=== PATIENT | female | born 1930 | race Caucasian/White ===

== ENCOUNTER 2019-03-12 13:27 | Emergency (ER) | payer MEDICARE, MEDICAID ==
[~2019-03-12] VITALS: Ht 152.4 cm; Wt 64.5 kg
[~2019-03-12 13:27] MED LIST: ALBU8.5H8 INH; ASPI-1264 PO; ATOR20TA PO; ATRIN INH; CLOP75TA15 PO; FERR324T4 PO; FURO-150 PO; GABA-532 PO; LEVO100T PO; LISI10TA4 PO; NITR0.4T SL; ONDA4TAB12 PO; PANT40TA4 PO; POTA8CAP20 PO
[2019-03-12] MEDS ORDERED: normal saline 1000ML IV soln IV ONE (14:55)
[2019-03-12] MEDS ORDERED: ondansetron/PF 4mg/2ml inj IV ONE (14:55)
[2019-03-12] MEDS ORDERED: metoprolol tartrate 1mg/ml inj IV ONE (15:10)
[2019-03-12 15:25] LABS: BASOPHILS # (AUTO) 0.1 X10'3 (0-0.2); BASOPHILS % (AUTO) 1.3 % (0-1); EOSINOPHILS # (AUTO) 0.1 X10'3 (0-0.9); EOSINOPHILS % (AUTO) 0.8 % (0-6); HEMOGLOBIN 12.3 g/dl (12.0-16.0); LYMPHOCYTES % (AUTO) 9.8 % (21-51); MEAN CORPUSCULAR HEMOGLOBIN 28.8 PG (27.0-31.0); MEAN CORPUSCULAR HGB CONC 33.3 g/dL (33.0-36.5); MEAN CORPUSCULAR VOLUME 86.5 FL (78-98); MEAN PLATELET VOLUME 7.8 FL (7.4-10.4); MONOCYTES # (AUTO) 0.9 X10'3 (0-0.9); MONOCYTES % (AUTO) 8.8 % (2-12); NEUTROPHILS # (AUTO) 8.4 X10'3 (1.8-7.7); NEUTROPHILS % (AUTO) 79.3 % (42-75); PLATELET COUNT 215 X10'3 (140-440); RED BLOOD COUNT 4.27 X10'6 (4.20-5.60); RED CELL DISTRIBUTION WIDTH 15.4 % (11.5-14.5); WHITE BLOOD COUNT 10.6 X10'3 (4.5-11.0)
[2019-03-12 15:37] LABS: ALANINE AMINOTRANSFERASE 16 U/L (12-78); ALBUMIN 3.7 G/DL (3.4-5.0); ALBUMIN/GLOBULIN RATIO 0.9 (1.1-1.5); ALKALINE PHOSPHATASE 79 IU/L (46-116); ANION GAP 11 (8-16); ASPARTATE AMINO TRANSFERASE 15 U/L (10-37); BLOOD UREA NITROGEN 27 MG/DL (7-18); BUN/CREATININE RATIO 20.1 (6.6-38.0); CALCIUM 9.8 MG/DL (8.5-10.1); CHLORIDE 101 MMOL/L (99-107); CREATININE 1.34 MG/DL (0.40-0.90); GLUCOSE 116 MG/DL (70-104); POTASSIUM 4.2 MMOL/L (3.5-5.1); SODIUM 137 MMOL/L (135-145); TOTAL CARBON DIOXIDE 24.6 MMOL/L (24-32); TOTAL PROTEIN 7.7 G/DL (6.4-8.2); eGFR 37 ML/MIN
[2019-03-12 16:39] LABS: CLARITY,URINE CLEAR (Clear); COLOR,URINE STRAW (Yellow); GLUCOSE, URINE NEGATIVE (Neg); KETONES,URINE NEGATIVE (Neg); LEUKOCYTE ESTERASE ,URINE NEGATIVE (Neg); NITRITES, URINE NEGATIVE (Neg); OCCULT BLOOD,URINE SMALL (Neg); PH,URINE 8.5 (4.8-8.0); PROTEIN,URINE 100 mg/dl (Neg); UROBILINOGEN,URINE 0.2 E.U/dL (0.2-1.0)
[2019-03-12 16:49] LABS: UA COLLECTION TYPE CLN CATCH MIDSTREAM
[2019-03-12 16:50] LABS: MUCUS STRANDS NONE SEEN /LPF (Neg); SQUAMOUS EPITHELIAL CELL,UR FEW /LPF (FEW); TRANSITIONAL EPI CELLS,URINE FEW /HPF
[2019-03-12 16:51] LABS: BACTERIA,URINE FEW /HPF (Neg); RBC,URINE 20-50 /HPF (0-2)
[2019-03-12 16:52] LABS: WBC,URINE 0-4 /HPF (0-4)
[2019-03-12] MEDS ORDERED: ONDA4TAB6 PO (17:03)
[2019-03-12 17:20] VITALS: BP 174/81
== END 2019-03-12 17:15 | disposition home or self-care (01) ==
LOC: ER 13:28
DX: A08.4 Viral intestinal infection, unspecified (principal); E86.0 Dehydration; I11.0 Hypertensive heart disease with heart failure; I50.9 Heart failure, unspecified; E78.00 Pure hypercholesterolemia, unspecified; J44.9 Chronic obstructive pulmonary disease, unspecified; K21.9 Gastro-esophageal reflux disease without esophagitis; G89.29 Other chronic pain; Z88.2 Allergy status to sulfonamides; Z79.82 Long term (current) use of aspirin; Z79.899 Other long term (current) drug therapy; Z86.73 Personal history of transient ischemic attack (TIA), and cerebral infarction without residual deficits; Z90.710 Acquired absence of both cervix and uterus; Z98.890 Other specified postprocedural states; Z95.0 Presence of cardiac pacemaker
CPT/HCPCS: 36415; 71045; 80053; 81001; 82948; 83605; 84145; 85025; 85610; 87040; 93005; 96361; 96374; 96375; 99284; J2405; J7030; J3490

== ENCOUNTER 2019-04-16 19:16 | Inpatient (IN) | payer MEDICAID, MEDICARE, OTHER ==
[~2019-04-16] VITALS: Ht 152.4 cm; Wt 64.0 kg
[~2019-04-16 19:16] MED LIST changes: +ONDA4TAB6 PO
[2019-04-16 20:13] LABS: CLARITY,URINE CLEAR (Clear); COLOR,URINE YELLOW (Yellow); GLUCOSE, URINE NEGATIVE (Neg); KETONES,URINE NEGATIVE (Neg); LEUKOCYTE ESTERASE ,URINE NEGATIVE (Neg); NITRITES, URINE NEGATIVE (Neg); OCCULT BLOOD,URINE MODERATE (Neg); PROTEIN,URINE 100 mg/dl (Neg); UA COLLECTION TYPE STRAIGHT CATH; UROBILINOGEN,URINE 0.2 E.U/dL (0.2-1.0)
[2019-04-16 20:20] LABS: BASOPHILS # (AUTO) 0.1 X10'3 (0-0.2); BASOPHILS % (AUTO) 0.9 % (0-1); EOSINOPHILS # (AUTO) 0.1 X10'3 (0-0.9); EOSINOPHILS % (AUTO) 0.7 % (0-6); HEMOGLOBIN 12.4 g/dl (12.0-16.0); LYMPHOCYTES # (AUTO) 0.7 X10'3 (1.1-4.8); LYMPHOCYTES % (AUTO) 7.1 % (21-51); MEAN CORPUSCULAR HEMOGLOBIN 28.4 PG (27.0-31.0); MEAN CORPUSCULAR HGB CONC 32.8 g/dL (33.0-36.5); MEAN CORPUSCULAR VOLUME 86.7 FL (78-98); MEAN PLATELET VOLUME 8.1 FL (7.4-10.4); MONOCYTES # (AUTO) 0.8 X10'3 (0-0.9); MONOCYTES % (AUTO) 8.3 % (2-12); NEUTROPHILS # (AUTO) 7.9 X10'3 (1.8-7.7); PLATELET COUNT 211 X10'3 (140-440); RED BLOOD COUNT 4.38 X10'6 (4.20-5.60); RED CELL DISTRIBUTION WIDTH 15.2 % (11.5-14.5); WHITE BLOOD COUNT 9.5 X10'3 (4.5-11.0)
[2019-04-16 20:28] LABS: BACTERIA,URINE NONE SEEN /HPF (Neg); MUCUS STRANDS NONE SEEN /LPF (Neg); SQUAMOUS EPITHELIAL CELL,UR FEW /LPF (FEW); WBC,URINE NONE SEEN /HPF (0-4)
[2019-04-16 20:35] LABS: PARTIAL THROMBOPLASTIN TIME 40 SECONDS (22-32)
[2019-04-16 20:37] LABS: ALANINE AMINOTRANSFERASE 20 U/L (12-78); ALBUMIN 3.4 G/DL (3.4-5.0); ALBUMIN/GLOBULIN RATIO 0.9 (1.1-1.5); ALKALINE PHOSPHATASE 91 IU/L (46-116); ANION GAP 13 (8-16); ASPARTATE AMINO TRANSFERASE 20 U/L (10-37); BILIRUBIN,TOTAL 0.4 MG/DL (0.1-1.0); BLOOD UREA NITROGEN 23 MG/DL (7-18); BUN/CREATININE RATIO 19.8 (6.6-38.0); CHLORIDE 105 MMOL/L (99-107); CREATININE 1.16 MG/DL (0.40-0.90); GLUCOSE 58 MG/DL (70-104); POTASSIUM 3.1 MMOL/L (3.5-5.1); SODIUM 141 MMOL/L (135-145); TOTAL CARBON DIOXIDE 23.2 MMOL/L (24-32); TOTAL PROTEIN 7.4 G/DL (6.4-8.2); eGFR 44 ML/MIN
[2019-04-16] MEDS ORDERED: ASPI-611 PO (21:19)
[2019-04-16] MEDS ORDERED: ATOR40TA PO (21:19)
[2019-04-16] MEDS ORDERED: METO-395 PO (21:19)
[2019-04-16] MEDS ORDERED: FURO40TA4 PO (21:19)
[2019-04-16] MEDS ORDERED: LISI-600 PO (21:19)
[2019-04-16] MEDS ORDERED: GABA-532 PO ×2 (21:19→23:52)
[2019-04-16] MEDS ORDERED: acetaminophen 325mg tablet PO PRN (23:05)
[2019-04-16] MEDS ORDERED: magnesium hydroxide 30ml (MOM) UD suspension PO PRN (23:05)
[2019-04-16] MEDS ORDERED: albuterol 2.5 MG/3 ML nebule NEB PRN (23:30)
[2019-04-16] MEDS ORDERED: potassium Cl 20 mEq SR tablet PO PRN (23:55)
[2019-04-16] MEDS ORDERED: potassium CL 10mEq/100ml bag 100 ML IV PRN (23:55)
--- NOTE | 2019-04-16 23:56 | NUR ---
Rec'd report from STAN Farley from the ER. Patient going to Rm#[id number].
[2019-04-17] VITALS (7 sets, daily range): BP systolic 120–195; BP diastolic 60–80
[2019-04-17] MEDS: ipratropium 0.5 MG/2.5ML nebule IH SCH ×5 (00:13→21:15)
[2019-04-17 01:54] LABS: BASOPHILS # (AUTO) 0.1 X10'3 (0-0.2); BASOPHILS % (AUTO) 1.3 % (0-1); EOSINOPHILS # (AUTO) 0.1 X10'3 (0-0.9); EOSINOPHILS % (AUTO) 0.7 % (0-6); HEMATOCRIT 38.2 % (35.0-45.0); HEMOGLOBIN 12.8 g/dl (12.0-16.0); LYMPHOCYTES # (AUTO) 0.8 X10'3 (1.1-4.8); LYMPHOCYTES % (AUTO) 9.6 % (21-51); MEAN CORPUSCULAR HEMOGLOBIN 28.7 PG (27.0-31.0); MEAN CORPUSCULAR HGB CONC 33.6 g/dL (33.0-36.5); MEAN CORPUSCULAR VOLUME 85.3 FL (78-98); MONOCYTES # (AUTO) 0.7 X10'3 (0-0.9); MONOCYTES % (AUTO) 8.2 % (2-12); NEUTROPHILS # (AUTO) 6.8 X10'3 (1.8-7.7); NEUTROPHILS % (AUTO) 80.2 % (42-75); PLATELET COUNT 191 X10'3 (140-440); RED BLOOD COUNT 4.48 X10'6 (4.20-5.60); RED CELL DISTRIBUTION WIDTH 14.8 % (11.5-14.5); WHITE BLOOD COUNT 8.4 X10'3 (4.5-11.0)
[2019-04-17] MEDS ORDERED: ondansetron 4mg rapidly disintigrating tab PO PRN (02:00)
[2019-04-17 02:04] LABS: ALANINE AMINOTRANSFERASE 21 U/L (12-78); ALBUMIN 3.3 G/DL (3.4-5.0); ALBUMIN/GLOBULIN RATIO 0.8 (1.1-1.5); ALKALINE PHOSPHATASE 87 IU/L (46-116); ANION GAP 8 (8-16); ASPARTATE AMINO TRANSFERASE 14 U/L (10-37); BILIRUBIN,TOTAL 0.4 MG/DL (0.1-1.0); BLOOD UREA NITROGEN 20 MG/DL (7-18); BUN/CREATININE RATIO 19.2 (6.6-38.0); CALCIUM 8.9 MG/DL (8.5-10.1); CHLORIDE 106 MMOL/L (99-107); CREATININE 1.04 MG/DL (0.40-0.90); GLUCOSE 51 MG/DL (70-104); POTASSIUM 3.6 MMOL/L (3.5-5.1); SODIUM 141 MMOL/L (135-145); TOTAL CARBON DIOXIDE 26.7 MMOL/L (24-32); TOTAL PROTEIN 7.2 G/DL (6.4-8.2); eGFR 50 ML/MIN
[2019-04-17] MEDS ORDERED: dextrose 50%-water 50ml dispensing syringe IV ONE ×2 (06:20→06:27)
--- NOTE | 2019-04-17 06:37 | NUR ---
Informed Dr. Landeros that the patient had a BG of 48, I pushed Dextrose and will recheck in 15min.
--- NOTE | 2019-04-17 06:54 | NUR ---
Patient in room PCU 3022. I have received report from STAN Bee and had the opportunity to ask questions and assume patient care. Pt is awake. Cristal corrected the pt's low blood sugar. She is alert and oriented, and sitting comfortably in bed.
[2019-04-17] MEDS: heparin, porcine 5000 units/ml vial SQ SCH ×3 (08:00→20:25)
[2019-04-17] MEDS: metoprolol succinate 25mg (24-HOUR) SR. Tablet PO SCH (08:39)
[2019-04-17] MEDS: clopidogrel 75mg tablet PO SCH (08:41)
[2019-04-17] MEDS: aspirin 81mg tab.chew PO SCH (08:41)
[2019-04-17] MEDS: ferrous sulfate 325mg tablet PO SCH ×2 (08:41→20:24)
[2019-04-17] MEDS: furosemide 40mg tablet PO SCH (08:41)
[2019-04-17] MEDS: potassium chloride 8mEq ER tablet PO SCH (08:41)
[2019-04-17] MEDS: levoTHYROXINE 100mcg tablet PO SCH (08:41)
[2019-04-17] MEDS: lisinopril 5mg tablet PO SCH ×2 (08:41→20:24)
--- NOTE | 2019-04-17 12:27 | NUR ---
Sent to Dr Huang PAGER ID: [phone] MESSAGE: RE: Rocio Perez [phone]. Would you mind calling me to fill me in on a plan? Pt is unsure why she is here if her problem was solely decreased BG, aside from pre-existing conditions. -Rhonda [phone]
[2019-04-17] MEDS: dextrose 5%-water 1,000 ML IV SCH (14:01)
--- NOTE | 2019-04-17 14:45 | NUR ---
Malnutrition consult: Patient's current wt is stable with documented wt hx. Per H&P pt has retained hunger which is evident with documented 100% PO intake on heart healthy diet meeting nutrient needs. Pt with general mild weakness and no edema. Pt currently does not meet criteria for malnutrition. Will continue to follow. Addendum: 04/17/19 at [address] Amended: Links added.
--- NOTE | 2019-04-17 18:53 | NUR ---
Problems reprioritized. Patient report given, questions answered & plan of care reviewed with STAN Bee.
[2019-04-17] MEDS: ondansetron/PF 4mg/2ml inj IV PRN (21:43)
--- NOTE | 2019-04-18 01:00 | NUR ---
Patient started complaining of Chest Pain 10/10 left breast, down left arm and jaw. 12 lead EKG done and Troponin sent off. Dr. Landeros notified and reviewed the EKG, advised me to give morphine 2mg now.
[2019-04-18] MEDS ORDERED: morphine 4 MG/ML inj SYRINge IV ONE (01:25)
[2019-04-18 01:34] LABS: ALANINE AMINOTRANSFERASE 21 U/L (12-78); ALBUMIN 3.3 G/DL (3.4-5.0); ALBUMIN/GLOBULIN RATIO 0.9 (1.1-1.5); ALKALINE PHOSPHATASE 82 IU/L (46-116); ANION GAP 13 (8-16); ASPARTATE AMINO TRANSFERASE 15 U/L (10-37); BILIRUBIN,TOTAL 0.6 MG/DL (0.1-1.0); BLOOD UREA NITROGEN 21 MG/DL (7-18); BUN/CREATININE RATIO 18.9 (6.6-38.0); CALCIUM 9.1 MG/DL (8.5-10.1); CHLORIDE 104 MMOL/L (99-107); CREATININE 1.11 MG/DL (0.40-0.90); GLUCOSE 119 MG/DL (70-104); POTASSIUM 4.4 MMOL/L (3.5-5.1); SODIUM 135 MMOL/L (135-145); TOTAL CARBON DIOXIDE 18.4 MMOL/L (24-32); TOTAL PROTEIN 7.1 G/DL (6.4-8.2); eGFR 46 ML/MIN
[2019-04-18 01:37] LABS: BASOPHILS # (AUTO) 0.3 X10'3 (0-0.2); BASOPHILS % (AUTO) 2.8 % (0-1); EOSINOPHILS # (AUTO) 0.3 X10'3 (0-0.9); EOSINOPHILS % (AUTO) 2.6 % (0-6); HEMOGLOBIN 12.8 g/dl (12.0-16.0); LYMPHOCYTES # (AUTO) 1.4 X10'3 (1.1-4.8); LYMPHOCYTES % (AUTO) 13.7 % (21-51); MAGNESIUM 1.9 MG/DL (1.5-2.4); MEAN CORPUSCULAR HEMOGLOBIN 28.7 PG (27.0-31.0); MEAN CORPUSCULAR HGB CONC 33.6 g/dL (33.0-36.5); MEAN CORPUSCULAR VOLUME 85.4 FL (78-98); MEAN PLATELET VOLUME 8.5 FL (7.4-10.4); MONOCYTES % (AUTO) 9.7 % (2-12); NEUTROPHILS # (AUTO) 7.1 X10'3 (1.8-7.7); NEUTROPHILS % (AUTO) 71.2 % (42-75); PLATELET COUNT 252 X10'3 (140-440); RED BLOOD COUNT 4.44 X10'6 (4.20-5.60); TROPONIN I < 0.04 NG/ML (0.0-0.05); WHITE BLOOD COUNT 9.9 X10'3 (4.5-11.0)
--- NOTE | 2019-04-18 01:50 | NUR ---
Troponin is negative 0.04, patient is resting comfortably after getting Morphine 2mg. I will continue to monitor.
--- NOTE | 2019-04-18 03:25 | NUR ---
Patient is up to bedside commode, she told unit tech she has no pain and is feeling better.
[2019-04-18 06:00] VITALS: BP 152/73
--- NOTE | 2019-04-18 06:13 | NUR ---
Problems reprioritized. Patient report given, questions answered & plan of care reviewed with STAN Ellis.
--- NOTE | 2019-04-18 06:20 | NUR ---
Patient in room PCU 3022. I have received report from STAN Bee and had the opportunity to ask questions and assume patient care. Pt sleeping. Will continue to monitor.
[2019-04-18] MEDS: ipratropium 0.5 MG/2.5ML nebule IH SCH ×4 (07:06→20:08)
[2019-04-18] MEDS: heparin, porcine 5000 units/ml vial SQ SCH ×2 (08:00→19:39)
[2019-04-18] MEDS: ondansetron/PF 4mg/2ml inj IV PRN ×2 (08:35→18:38)
[2019-04-18] MEDS: lisinopril 5mg tablet PO SCH ×2 (08:36→19:39)
[2019-04-18] MEDS: potassium chloride 8mEq ER tablet PO SCH (08:36)
[2019-04-18] MEDS: levoTHYROXINE 100mcg tablet PO SCH (08:36)
[2019-04-18] MEDS: metoprolol succinate 25mg (24-HOUR) SR. Tablet PO SCH (08:36)
[2019-04-18] MEDS: aspirin 81mg tab.chew PO SCH (08:36)
[2019-04-18] MEDS: furosemide 40mg tablet PO SCH (08:36)
[2019-04-18] MEDS: ferrous sulfate 325mg tablet PO SCH ×2 (08:36→19:39)
[2019-04-18] MEDS: clopidogrel 75mg tablet PO SCH (08:36)
[2019-04-18] MEDS: dextrose 5%-water 1,000 ML IV SCH (09:25)
[2019-04-18 11:00] VITALS: BP 132/54
[2019-04-18 15:00] VITALS: BP 135/44
--- NOTE | 2019-04-18 18:00 | NUR ---
Patient in room PCU 3022. I have received report from STAN Ellis and had the opportunity to ask questions and assume patient care.
--- NOTE | 2019-04-18 18:19 | NUR ---
Problems reprioritized. Patient report given, questions answered & plan of care reviewed with STAN Lindsay.
[2019-04-18 19:00] VITALS: BP 177/76
[2019-04-18] MEDS ORDERED: metoprolol tartrate 50mg tablet PO ONE (20:10)
[2019-04-18] MEDS ORDERED: metoprolol tartrate 12.5mg (1/2 tablet) PO ONE ×2 (20:20→22:25)
[2019-04-18 23:00] VITALS: BP 156/56
[2019-04-19 03:00] VITALS: BP 114/66
[2019-04-19 06:00] VITALS: BP 160/68
[2019-04-19 06:08] LABS: BASOPHILS % (AUTO) 0.4 % (0-1); EOSINOPHILS # (AUTO) 0.4 X10'3 (0-0.9); EOSINOPHILS % (AUTO) 5.1 % (0-6); HEMATOCRIT 37.4 % (35.0-45.0); HEMOGLOBIN 12.7 g/dl (12.0-16.0); LYMPHOCYTES # (AUTO) 1.3 X10'3 (1.1-4.8); LYMPHOCYTES % (AUTO) 16.1 % (21-51); MEAN CORPUSCULAR HEMOGLOBIN 28.5 PG (27.0-31.0); MEAN CORPUSCULAR HGB CONC 33.9 g/dL (33.0-36.5); MEAN CORPUSCULAR VOLUME 84.1 FL (78-98); MEAN PLATELET VOLUME 8.1 FL (7.4-10.4); MONOCYTES # (AUTO) 1.1 X10'3 (0-0.9); MONOCYTES % (AUTO) 13.7 % (2-12); NEUTROPHILS # (AUTO) 5.2 X10'3 (1.8-7.7); NEUTROPHILS % (AUTO) 64.7 % (42-75); PLATELET COUNT 262 X10'3 (140-440); RED BLOOD COUNT 4.45 X10'6 (4.20-5.60); RED CELL DISTRIBUTION WIDTH 14.9 % (11.5-14.5)
--- NOTE | 2019-04-19 06:10 | NUR ---
Patient in room PCU 3022. I have received report from Angélica PIERCE and had the opportunity to ask questions and assume patient care.
--- NOTE | 2019-04-19 06:19 | NUR ---
Problems reprioritized. Patient report given, questions answered & plan of care reviewed with STAN Addison.
[2019-04-19 06:47] LABS: ALANINE AMINOTRANSFERASE 17 U/L (12-78); ALBUMIN 3.3 G/DL (3.4-5.0); ALBUMIN/GLOBULIN RATIO 0.9 (1.1-1.5); ALKALINE PHOSPHATASE 77 IU/L (46-116); ANION GAP 12 (8-16); ASPARTATE AMINO TRANSFERASE 17 U/L (10-37); BILIRUBIN,TOTAL 0.6 MG/DL (0.1-1.0); BLOOD UREA NITROGEN 23 MG/DL (7-18); BUN/CREATININE RATIO 19.5 (6.6-38.0); CALCIUM 9.3 MG/DL (8.5-10.1); CHLORIDE 102 MMOL/L (99-107); CREATININE 1.18 MG/DL (0.40-0.90); GLUCOSE 105 MG/DL (70-104); MAGNESIUM 2.1 MG/DL (1.5-2.4); POTASSIUM 4.5 MMOL/L (3.5-5.1); SODIUM 134 MMOL/L (135-145); TOTAL CARBON DIOXIDE 19.8 MMOL/L (24-32); TOTAL PROTEIN 7.1 G/DL (6.4-8.2); eGFR 43 ML/MIN
[2019-04-19] MEDS: ipratropium 0.5 MG/2.5ML nebule IH SCH ×4 (07:00→19:00)
[2019-04-19] MEDS: dextrose 5%-water 1,000 ML IV SCH (08:08)
[2019-04-19] MEDS: lisinopril 5mg tablet PO SCH ×2 (08:09→19:37)
[2019-04-19] MEDS: ferrous sulfate 325mg tablet PO SCH ×2 (08:09→19:37)
[2019-04-19] MEDS: aspirin 81mg tab.chew PO SCH (08:09)
[2019-04-19] MEDS: heparin, porcine 5000 units/ml vial SQ SCH ×2 (08:09→19:38)
[2019-04-19] MEDS: metoprolol succinate 25mg (24-HOUR) SR. Tablet PO SCH (08:09)
[2019-04-19] MEDS: clopidogrel 75mg tablet PO SCH (08:09)
[2019-04-19] MEDS: potassium chloride 8mEq ER tablet PO SCH (08:09)
[2019-04-19] MEDS: levoTHYROXINE 100mcg tablet PO SCH (08:09)
[2019-04-19] MEDS: furosemide 40mg tablet PO SCH (08:10)
[2019-04-19] MEDS: ondansetron/PF 4mg/2ml inj IV PRN ×2 (09:42→18:42)
[2019-04-19] MEDS: mag hydrox/Alum hydrox/simeth 30ml oral suspension PO PRN ×2 (09:42→16:51)
[2019-04-19 11:00] VITALS: BP 145/70
[2019-04-19 15:00] VITALS: BP 134/52
--- NOTE | 2019-04-19 18:00 | NUR ---
Problems reprioritized. Patient report given, questions answered & plan of care reviewed with Sweta PIERCE.
--- NOTE | 2019-04-19 18:10 | NUR ---
Patient in room PCU 3022. I have received report from Azael and had the opportunity to ask questions and assume patient care. Patient c/o of nausea. Administered zofran IV. Denies dizziness, CP, and rate pain 0/10. Will continue to monitor
[2019-04-19 19:00] VITALS: BP 116/51
[2019-04-19 22:00] VITALS: BP 88/68
[2019-04-19] MEDS ORDERED: metoprolol tartrate 12.5mg (1/2 tablet) PO ONE (22:20)
[2019-04-19] MEDS ORDERED: morphine 2 MG/ML inj. syringe IV PRN (22:25)
--- NOTE | 2019-04-20 02:00 | NUR ---
Pt c/o of chest pain. EKG was done and reviewed by Dr. Landeros. ' orderswere 12.5 Lopressor and 2 mg of IV morphine. Pt BP is 88/68 so medications were not administered. I consulted with charge nurse.
[2019-04-20 03:00] VITALS: BP 125/40
--- NOTE | 2019-04-20 04:00 | NUR ---
Mistaken entry for rounding ( pt is not on CPAP)
[2019-04-20 05:57] LABS: HEMOGLOBIN 12.7 g/dl (12.0-16.0)
[2019-04-20 06:00] LABS: HEMATOCRIT 37.2 % (35.0-45.0); MEAN CORPUSCULAR HEMOGLOBIN 28.7 PG (27.0-31.0); MEAN CORPUSCULAR HGB CONC 34.2 g/dL (33.0-36.5); MEAN PLATELET VOLUME 7.7 FL (7.4-10.4); PLATELET COUNT 284 X10'3 (140-440); RED BLOOD COUNT 4.43 X10'6 (4.20-5.60); RED CELL DISTRIBUTION WIDTH 14.8 % (11.5-14.5); WHITE BLOOD COUNT 7.9 X10'3 (4.5-11.0)
--- NOTE | 2019-04-20 06:10 | NUR ---
Problems reprioritized. Patient report given, questions answered & plan of care reviewed with STAN Addison
--- NOTE | 2019-04-20 06:10 | NUR ---
Patient in room PCU 3022. I have received report from Angel PIERCE and had the opportunity to ask questions and assume patient care.
[2019-04-20 06:42] LABS: PLATELET ESTIMATE NORMAL; POIKILOCYTOSIS 1+; ROULEAUX 1+; TOTAL CELLS COUNTED 100
[2019-04-20 06:56] LABS: ALANINE AMINOTRANSFERASE 17 U/L (12-78); ALBUMIN 3.2 G/DL (3.4-5.0); ALBUMIN/GLOBULIN RATIO 0.9 (1.1-1.5); ALKALINE PHOSPHATASE 74 IU/L (46-116); ANION GAP 10 (8-16); ASPARTATE AMINO TRANSFERASE 17 U/L (10-37); BILIRUBIN,TOTAL 0.5 MG/DL (0.1-1.0); BLOOD UREA NITROGEN 26 MG/DL (7-18); CALCIUM 9.2 MG/DL (8.5-10.1); CHLORIDE 102 MMOL/L (99-107); CREATININE 1.37 MG/DL (0.40-0.90); GLUCOSE 93 MG/DL (70-104); MAGNESIUM 2.5 MG/DL (1.5-2.4); POTASSIUM 4.7 MMOL/L (3.5-5.1); SODIUM 134 MMOL/L (135-145); TOTAL PROTEIN 6.8 G/DL (6.4-8.2); eGFR 36 ML/MIN
[2019-04-20] MEDS: levoTHYROXINE 100mcg tablet PO SCH (07:29)
[2019-04-20] MEDS: heparin, porcine 5000 units/ml vial SQ SCH (07:29)
[2019-04-20] MEDS: lisinopril 5mg tablet PO SCH (07:30)
[2019-04-20] MEDS: metoprolol succinate 25mg (24-HOUR) SR. Tablet PO SCH (07:30)
[2019-04-20] MEDS: furosemide 40mg tablet PO SCH (07:30)
[2019-04-20] MEDS: ferrous sulfate 325mg tablet PO SCH (07:30)
[2019-04-20] MEDS: potassium chloride 8mEq ER tablet PO SCH (07:30)
[2019-04-20] MEDS: aspirin 81mg tab.chew PO SCH (07:30)
[2019-04-20] MEDS: clopidogrel 75mg tablet PO SCH (07:30)
[2019-04-20] MEDS: ipratropium 0.5 MG/2.5ML nebule IH SCH ×2 (08:22→11:27)
[2019-04-20 11:00] VITALS: BP 104/51
[2019-04-20] MEDS ORDERED: PANT-47 PO (11:44)
--- NOTE | 2019-04-20 14:25 | NUR ---
Pt Dc'd home with . IV removed, canula intact. Tele-box removed and returned to tele-tech. Pt's alert and oriented with stable vitals. DC paperwork gone over with pt and . Allowed Pt and to ask questions about DC instructions and then answer them. Pt and will make follow up apt with PCP at [facility]. New prescription delivered to Pt via [facility]. Nurse went over what new medications are and when to take them. Pt's belongings gathered and sent with Pt. Pt wheeled down to lobby in wheelchair by nurse. Pt and left in private vehicle for home.
== END 2019-04-20 14:59 | disposition home or self-care (01) | DRG 641 ==
LOC: ER 19:18 → PCU 3S 04-17 00:12 → CMPBEDREQ 04-17 00:14
PROVIDERS: ADMIT Internal Medicine; ATTEND Internal Medicine
DX: E16.2 Hypoglycemia, unspecified (principal); N17.9 Acute kidney failure, unspecified; I95.1 Orthostatic hypotension; I35.0 Nonrheumatic aortic (valve) stenosis; E03.9 Hypothyroidism, unspecified; E78.00 Pure hypercholesterolemia, unspecified; E78.5 Hyperlipidemia, unspecified; E86.0 Dehydration; I11.0 Hypertensive heart disease with heart failure; G62.9 Polyneuropathy, unspecified; G89.29 Other chronic pain; I25.10 Atherosclerotic heart disease of native coronary artery without angina pectoris; I50.9 Heart failure, unspecified; J44.9 Chronic obstructive pulmonary disease, unspecified; R31.9 Hematuria, unspecified; K21.9 Gastro-esophageal reflux disease without esophagitis; K29.70 Gastritis, unspecified, without bleeding; Z79.02 Long term (current) use of antithrombotics/antiplatelets; Z79.82 Long term (current) use of aspirin; Z86.73 Personal history of transient ischemic attack (TIA), and cerebral infarction without residual deficits; Z95.0 Presence of cardiac pacemaker; Z90.710 Acquired absence of both cervix and uterus; Z95.2 Presence of prosthetic heart valve; Z79.899 Other long term (current) drug therapy; Z88.2 Allergy status to sulfonamides; Z87.440 Personal history of urinary (tract) infections; Z98.891 History of uterine scar from previous surgery; Z82.5 Family history of asthma and other chronic lower respiratory diseases; Z82.49 Family history of ischemic heart disease and other diseases of the circulatory system
CPT/HCPCS: 36415; 71045; 80053; 81001; 82948; 83735; 84443; 84484; 84681; 85025; 85610; 85730; 87081; 93005; 94640; 94760; 99285; G0378; J1644; J2270; J2405; J7070

== ENCOUNTER 2019-05-26 19:19 | Emergency (ER) | payer MEDICARE ==
[~2019-05-26] VITALS: Ht 152.4 cm; Wt 81.8 kg
[~2019-05-26 19:19] MED LIST changes: -ASPI-1264 PO; +ASPI-611 PO; -ATOR20TA PO; +ATOR40TA PO; -FURO-150 PO; +FURO40TA4 PO; +LISI-600 PO; -LISI10TA4 PO; +METO-395 PO; -ONDA4TAB12 PO; +PANT-47 PO; -PANT40TA4 PO
--- NOTE | 2019-05-26 19:25 | NUR ---
attempted to triage by anuja garcia but pt insistent on going to bathroom
[2019-05-26] MEDS ORDERED: ondansetron/PF 4mg/2ml inj IV ONE ×2 (19:50→22:25)
[2019-05-26 20:22] LABS: PARTIAL THROMBOPLASTIN TIME 33 SECONDS (22-32)
[2019-05-26 20:48] LABS: ALANINE AMINOTRANSFERASE 15 U/L (12-78); ALBUMIN 3.1 G/DL (3.4-5.0); ALBUMIN/GLOBULIN RATIO 0.8 (1.1-1.5); ALKALINE PHOSPHATASE 81 IU/L (46-116); ANION GAP 13 (8-16); ASPARTATE AMINO TRANSFERASE 18 U/L (10-37); BILIRUBIN,TOTAL 0.6 MG/DL (0.1-1.0); BLOOD UREA NITROGEN 13 MG/DL (7-18); BUN/CREATININE RATIO 13.8 (6.6-38.0); CALCIUM 9.6 MG/DL (8.5-10.1); CHLORIDE 104 MMOL/L (99-107); CREATININE 0.94 MG/DL (0.40-0.90); GLUCOSE 106 MG/DL (70-104); LIPASE 200 U/L (73-393); POTASSIUM 3.8 MMOL/L (3.5-5.1); SODIUM 138 MMOL/L (135-145); TOTAL CARBON DIOXIDE 21.3 MMOL/L (24-32); TOTAL PROTEIN 7.1 G/DL (6.4-8.2); eGFR 56 ML/MIN
[2019-05-26 21:04] LABS: BASOPHILS # (AUTO) 0.1 X10'3 (0-0.2); BASOPHILS % (AUTO) 1.4 % (0-1); EOSINOPHILS # (AUTO) 0.2 X10'3 (0-0.9); HEMATOCRIT 34.7 % (35.0-45.0); HEMOGLOBIN 11.6 g/dl (12.0-16.0); LYMPHOCYTES # (AUTO) 0.9 X10'3 (1.1-4.8); LYMPHOCYTES % (AUTO) 10.1 % (21-51); MEAN CORPUSCULAR HEMOGLOBIN 28.8 PG (27.0-31.0); MEAN CORPUSCULAR HGB CONC 33.6 g/dL (33.0-36.5); MEAN CORPUSCULAR VOLUME 85.8 FL (78-98); MEAN PLATELET VOLUME 7.9 FL (7.4-10.4); MONOCYTES # (AUTO) 0.9 X10'3 (0-0.9); MONOCYTES % (AUTO) 10.8 % (2-12); NEUTROPHILS # (AUTO) 6.5 X10'3 (1.8-7.7); NEUTROPHILS % (AUTO) 75.7 % (42-75); PLATELET COUNT 291 X10'3 (140-440); RED BLOOD COUNT 4.05 X10'6 (4.20-5.60); RED CELL DISTRIBUTION WIDTH 15.1 % (11.5-14.5); WHITE BLOOD COUNT 8.6 X10'3 (4.5-11.0)
[2019-05-26 21:34] LABS: CLARITY,URINE CLEAR (Clear); COLOR,URINE YELLOW (Yellow); GLUCOSE, URINE NEGATIVE (Neg); KETONES,URINE NEGATIVE (Neg); LEUKOCYTE ESTERASE ,URINE NEGATIVE (Neg); NITRITES, URINE NEGATIVE (Neg); OCCULT BLOOD,URINE MODERATE (Neg); PH,URINE 7.5 (4.8-8.0); PROTEIN,URINE 100 mg/dl (Neg); UROBILINOGEN,URINE 0.2 E.U/dL (0.2-1.0)
[2019-05-26 21:36] LABS: UA COLLECTION TYPE VOIDED
[2019-05-26 21:40] LABS: BACTERIA,URINE FEW /HPF (Neg); SQUAMOUS EPITHELIAL CELL,UR MODERATE /LPF (FEW); WBC,URINE 0-4 /HPF (0-4)
[2019-05-26 21:41] LABS: MUCUS STRANDS NONE SEEN /LPF (Neg)
[2019-05-26] MEDS ORDERED: mag hydrox/Alum hydrox/simeth 30ml oral suspension PO ONE (21:50)
[2019-05-26] MEDS ORDERED: LIDOcaine Viscous 15ml cup MM PRN (21:50)
--- NOTE | 2019-05-26 22:24 | NUR ---
NOTIFIED MELISSA STONE OF PT VOMITING AND UNABLE TO COMPLETE PO CHALLENGE. ORDERS TO FOLLOW
[2019-05-26] MEDS ORDERED: ringers solution, lacted 1,000 ML IV ONE (22:25)
[2019-05-26] MEDS ORDERED: ringers solution, lacted 500 ML IV ONE (22:26)
[2019-05-26] MEDS ORDERED: famotidine/PF 10 mg/ml inj IV ONE (22:40)
[2019-05-26] MEDS ORDERED: proCHLORperazine 10 MG/2 ml inj IV ONE (23:25)
[2019-05-27] MEDS ORDERED: PROC5TAB56 PO (00:28)
[2019-05-27 00:57] VITALS: BP 155/106
== END 2019-05-27 00:56 | disposition home or self-care (01) ==
LOC: ER 19:20
DX: R11.2 Nausea with vomiting, unspecified (principal); R42 Dizziness and giddiness; R07.89 Other chest pain; R51 Headache; R10.13 Epigastric pain; R10.30 Lower abdominal pain, unspecified; I11.0 Hypertensive heart disease with heart failure; I50.9 Heart failure, unspecified; E78.00 Pure hypercholesterolemia, unspecified; J44.9 Chronic obstructive pulmonary disease, unspecified; K21.9 Gastro-esophageal reflux disease without esophagitis; G89.29 Other chronic pain; F10.99 Alcohol use, unspecified with unspecified alcohol-induced disorder; Z90.710 Acquired absence of both cervix and uterus; Z98.890 Other specified postprocedural states; Z86.73 Personal history of transient ischemic attack (TIA), and cerebral infarction without residual deficits; Z88.2 Allergy status to sulfonamides; Z79.82 Long term (current) use of aspirin; Z79.899 Other long term (current) drug therapy; Y90.9 Presence of alcohol in blood, level not specified
CPT/HCPCS: 36415; 70450; 71045; 74176; 80053; 81001; 83605; 83690; 84484; 85025; 85610; 85730; 93005; 96374; 96375; 96376; 99284; J0780; J2405; J3490; J7120

== ENCOUNTER 2019-05-31 18:32 | Inpatient (IN) | payer MEDICARE, OTHER ==
[~2019-05-31] VITALS: Ht 154.9 cm; Wt 70.5 kg
[~2019-05-31 18:32] MED LIST changes: +PROC5TAB56 PO
[2019-05-31 20:52] LABS: BASOPHILS # (AUTO) 0.1 X10'3 (0-0.2); BASOPHILS % (AUTO) 1.6 % (0-1); EOSINOPHILS # (AUTO) 0.4 X10'3 (0-0.9); HEMATOCRIT 37.1 % (35.0-45.0); HEMOGLOBIN 12.2 g/dl (12.0-16.0); LYMPHOCYTES # (AUTO) 1.2 X10'3 (1.1-4.8); LYMPHOCYTES % (AUTO) 12.7 % (21-51); MEAN CORPUSCULAR HEMOGLOBIN 28.3 PG (27.0-31.0); MEAN CORPUSCULAR HGB CONC 32.9 g/dL (33.0-36.5); MEAN CORPUSCULAR VOLUME 86.2 FL (78-98); MEAN PLATELET VOLUME 7.6 FL (7.4-10.4); MONOCYTES % (AUTO) 10.1 % (2-12); NEUTROPHILS # (AUTO) 6.7 X10'3 (1.8-7.7); NEUTROPHILS % (AUTO) 71.6 % (42-75); PLATELET COUNT 355 X10'3 (140-440); RED BLOOD COUNT 4.31 X10'6 (4.20-5.60); WHITE BLOOD COUNT 9.4 X10'3 (4.5-11.0)
[2019-05-31] MEDS ORDERED: normal saline 1000ML IV soln IV ONE (20:55)
[2019-05-31] MEDS ORDERED: ondansetron/PF 4mg/2ml inj IV ONE (20:55)
[2019-05-31] MEDS ORDERED: morphine 4 MG/ML inj SYRINge IV PRN (20:55)
[2019-05-31 21:04] LABS: ALANINE AMINOTRANSFERASE 14 U/L (12-78); ALBUMIN 3.1 G/DL (3.4-5.0); ALBUMIN/GLOBULIN RATIO 0.7 (1.1-1.5); ALKALINE PHOSPHATASE 88 IU/L (46-116); ANION GAP 11 (8-16); ASPARTATE AMINO TRANSFERASE 16 U/L (10-37); BILIRUBIN,TOTAL 0.5 MG/DL (0.1-1.0); BLOOD UREA NITROGEN 13 MG/DL (7-18); BUN/CREATININE RATIO 12.3 (6.6-38.0); CALCIUM 9.2 MG/DL (8.5-10.1); CHLORIDE 106 MMOL/L (99-107); CREATININE 1.06 MG/DL (0.40-0.90); GLUCOSE 98 MG/DL (70-104); MAGNESIUM 1.9 MG/DL (1.5-2.4); POTASSIUM 3.9 MMOL/L (3.5-5.1); SODIUM 141 MMOL/L (135-145); TOTAL CARBON DIOXIDE 24.3 MMOL/L (24-32); TOTAL PROTEIN 7.3 G/DL (6.4-8.2); eGFR 49 ML/MIN
--- NOTE | 2019-05-31 21:16 | NUR ---
pt sat at 89-91%, pt placed on 1 L o2 and now sating at 96%
[2019-05-31 21:24] LABS: CLARITY,URINE CLEAR (Clear); COLOR,URINE YELLOW (Yellow); GLUCOSE, URINE NEGATIVE (Neg); KETONES,URINE NEGATIVE (Neg); LEUKOCYTE ESTERASE ,URINE NEGATIVE (Neg); NITRITES, URINE NEGATIVE (Neg); OCCULT BLOOD,URINE SMALL (Neg); PROTEIN,URINE 100 mg/dl (Neg); UROBILINOGEN,URINE 0.2 E.U/dL (0.2-1.0)
[2019-05-31 21:25] LABS: UA COLLECTION TYPE CLN CATCH MIDSTREAM
[2019-05-31 21:29] LABS: BACTERIA,URINE 1+ /HPF (Neg); MUCUS STRANDS NONE SEEN /LPF (Neg); SQUAMOUS EPITHELIAL CELL,UR MODERATE /LPF (FEW)
[2019-05-31] MEDS ORDERED: mag hydrox/Alum hydrox/simeth 30ml oral suspension PO PRN (22:35)
[2019-05-31] MEDS ORDERED: morphine 2 MG/ML inj. syringe IV PRN ×2 (22:35)
[2019-05-31] MEDS ORDERED: acetaminophen 325mg tablet PO PRN (22:35)
[2019-05-31] MEDS ORDERED: magnesium hydroxide 30ml (MOM) UD suspension PO PRN (22:35)
[2019-05-31] MEDS ORDERED: albuterol 2.5 MG/3 ML nebule NEB PRN (22:45)
[2019-05-31] MEDS: normal saline 1000ml 1,000 ML IV SCH (23:07)
--- NOTE | 2019-06-01 00:57 | NUR ---
Patient in room ORTHO 4006. I have received report from STAN Saxena and had the opportunity to ask questions and assume patient care.
[2019-06-01 01:19] VITALS: BP 151/84
[2019-06-01 05:25] LABS: BASOPHILS # (AUTO) 0.1 X10'3 (0-0.2); BASOPHILS % (AUTO) 1.5 % (0-1); EOSINOPHILS # (AUTO) 0.4 X10'3 (0-0.9); EOSINOPHILS % (AUTO) 5.6 % (0-6); HEMATOCRIT 33.4 % (35.0-45.0); HEMOGLOBIN 11.3 g/dl (12.0-16.0); LYMPHOCYTES # (AUTO) 1.2 X10'3 (1.1-4.8); LYMPHOCYTES % (AUTO) 16.9 % (21-51); MEAN CORPUSCULAR HEMOGLOBIN 28.6 PG (27.0-31.0); MEAN CORPUSCULAR HGB CONC 33.8 g/dL (33.0-36.5); MEAN CORPUSCULAR VOLUME 84.7 FL (78-98); MEAN PLATELET VOLUME 7.5 FL (7.4-10.4); MONOCYTES # (AUTO) 0.8 X10'3 (0-0.9); NEUTROPHILS # (AUTO) 4.6 X10'3 (1.8-7.7); PLATELET COUNT 290 X10'3 (140-440); RED BLOOD COUNT 3.94 X10'6 (4.20-5.60); RED CELL DISTRIBUTION WIDTH 14.8 % (11.5-14.5)
[2019-06-01 05:37] LABS: ALANINE AMINOTRANSFERASE 13 U/L (12-78); ALBUMIN 2.7 G/DL (3.4-5.0); ALBUMIN/GLOBULIN RATIO 0.8 (1.1-1.5); ALKALINE PHOSPHATASE 73 IU/L (46-116); ANION GAP 10 (8-16); ASPARTATE AMINO TRANSFERASE 14 U/L (10-37); BILIRUBIN,TOTAL 0.5 MG/DL (0.1-1.0); BLOOD UREA NITROGEN 10 MG/DL (7-18); BUN/CREATININE RATIO 10.4 (6.6-38.0); CHLORIDE 110 MMOL/L (99-107); CREATININE 0.96 MG/DL (0.40-0.90); GLUCOSE 89 MG/DL (70-104); POTASSIUM 3.7 MMOL/L (3.5-5.1); SODIUM 143 MMOL/L (135-145); TOTAL CARBON DIOXIDE 22.9 MMOL/L (24-32); TOTAL PROTEIN 6.1 G/DL (6.4-8.2); eGFR 55 ML/MIN
[2019-06-01 06:00] VITALS: BP 144/73
--- NOTE | 2019-06-01 06:45 | NUR ---
Problems reprioritized. Patient report given, questions answered & plan of care reviewed with STAN Hart.
[2019-06-01 07:16] LABS: HEMOGLOBIN A1C 5.6 % (4.5-6.2)
--- NOTE | 2019-06-01 07:59 | NUR ---
PAGER ID: [phone] MESSAGE: Hailey [phone] katie PerezKeeshan in [phone]- can she eat? US abd is done- unremarkable- RUQ TTP no nausea or diarrhea- if you don't want further diagnostics is clears advance as tolerated ok?
--- NOTE | 2019-06-01 08:07 | NUR ---
PAGER ID: [phone] MESSAGE: Hailey [phone] katie PerezKeeshan in [phone]- can she eat? US abd is done- unremarkable- RUQ TTP no nausea or diarrhea- if you don't want further diagnostics is clears advance as tolerated ok?
[2019-06-01] MEDS: ipratropium 0.5 MG/2.5ML nebule NEB SCH ×3 (08:34→19:00)
[2019-06-01] MEDS ORDERED: NORMAL SALINE IV ONE (08:45)
[2019-06-01] MEDS ORDERED: SINCALIDE IV ONE (08:45)
[2019-06-01] MEDS: metoprolol succinate 25mg (24-HOUR) SR. Tablet PO SCH (09:51)
[2019-06-01] MEDS: levoTHYROXINE 100mcg tablet PO SCH (09:51)
[2019-06-01] MEDS: clopidogrel 75mg tablet PO SCH (09:51)
[2019-06-01] MEDS: lisinopril 20mg tablet PO SCH (09:51)
[2019-06-01] MEDS: pantoprazole 40mg Tablet.DR PO SCH (09:51)
[2019-06-01] MEDS: aspirin 81mg tablet.DR PO SCH (09:52)
[2019-06-01] MEDS: heparin, porcine 5000 units/ml vial SQ SCH ×2 (09:53→19:36)
[2019-06-01 10:00] VITALS: BP 154/72
[2019-06-01] MEDS: ondansetron/PF 4mg/2ml inj IV PRN (12:01)
[2019-06-01 13:09] LABS: OCCULT BLOOD STOOL NEGATIVE (Neg)
--- NOTE | 2019-06-01 13:26 | NUR ---
I have reviewed and agree with all medications administered and interventions performed by CINNAMON GRINDER Student Cait Ambrose.
--- NOTE | 2019-06-01 14:05 | NUR ---
PAGER ID: [phone] MESSAGE: Hailey [phone] Cliff Quesada in [phone]- Zofran ineffective, can we give her another antiemetic? Also Nuc med says they will be doing a regular HIDA w no EF, is that ok?
[2019-06-01] MEDS ORDERED: proCHLORperazine 10 MG/2 ml inj IV PRN (14:10)
--- NOTE | 2019-06-01 17:11 | NUR ---
PAGER ID: [phone] MESSAGE: Hailey [phone] katie Chris Coronado in [phone]- pt is urinating 25 ml every 20 min-1 hr. Very mild temp 99.1
[2019-06-01 18:00] VITALS: BP 185/84
--- NOTE | 2019-06-01 18:00 | NUR ---
Patient in room ORTHO 4006. I have received report from alondra and had the opportunity to ask questions and assume patient care.
[2019-06-01 19:27] LABS: CLARITY,URINE CLEAR (Clear); COLOR,URINE YELLOW (Yellow); GLUCOSE, URINE NEGATIVE (Neg); KETONES,URINE NEGATIVE (Neg); LEUKOCYTE ESTERASE ,URINE NEGATIVE (Neg); NITRITES, URINE NEGATIVE (Neg); OCCULT BLOOD,URINE LARGE (Neg); PH,URINE 6.5 (4.8-8.0); PROTEIN,URINE 100 mg/dl (Neg); UROBILINOGEN,URINE 0.2 E.U/dL (0.2-1.0)
[2019-06-01 19:33] LABS: UA COLLECTION TYPE NON-SPECIFIED
[2019-06-01 19:35] LABS: BACTERIA,URINE FEW /HPF (Neg); RBC,URINE 20-50 /HPF (0-2); SQUAMOUS EPITHELIAL CELL,UR FEW /LPF (FEW); WBC,URINE 0-4 /HPF (0-4)
[2019-06-01 22:00] VITALS: BP 150/79
[2019-06-02] MEDS: normal saline 1000ml 1,000 ML IV SCH (02:17)
[2019-06-02 06:00] VITALS: BP 124/75
[2019-06-02 06:24] LABS: BASOPHILS # (AUTO) 0.1 X10'3 (0-0.2); BASOPHILS % (AUTO) 1.6 % (0-1); EOSINOPHILS # (AUTO) 0.1 X10'3 (0-0.9); EOSINOPHILS % (AUTO) 1.9 % (0-6); HEMATOCRIT 30.9 % (35.0-45.0); HEMOGLOBIN 10.4 g/dl (12.0-16.0); LYMPHOCYTES # (AUTO) 0.8 X10'3 (1.1-4.8); LYMPHOCYTES % (AUTO) 10.2 % (21-51); MEAN CORPUSCULAR HEMOGLOBIN 28.6 PG (27.0-31.0); MEAN CORPUSCULAR HGB CONC 33.6 g/dL (33.0-36.5); MEAN CORPUSCULAR VOLUME 85.2 FL (78-98); MEAN PLATELET VOLUME 7.5 FL (7.4-10.4); MONOCYTES # (AUTO) 0.8 X10'3 (0-0.9); MONOCYTES % (AUTO) 9.7 % (2-12); NEUTROPHILS % (AUTO) 76.6 % (42-75); PLATELET COUNT 270 X10'3 (140-440); RED BLOOD COUNT 3.63 X10'6 (4.20-5.60); RED CELL DISTRIBUTION WIDTH 15.3 % (11.5-14.5); WHITE BLOOD COUNT 7.9 X10'3 (4.5-11.0)
--- NOTE | 2019-06-02 06:28 | NUR ---
Problems reprioritized. Patient report given, questions answered & plan of care reviewed with GLENN Hart.
[2019-06-02 06:42] LABS: ALANINE AMINOTRANSFERASE 12 U/L (12-78); ALBUMIN 2.5 G/DL (3.4-5.0); ALBUMIN/GLOBULIN RATIO 0.7 (1.1-1.5); ALKALINE PHOSPHATASE 64 IU/L (46-116); ANION GAP 11 (8-16); ASPARTATE AMINO TRANSFERASE 18 U/L (10-37); BILIRUBIN,TOTAL 0.7 MG/DL (0.1-1.0); BLOOD UREA NITROGEN 8 MG/DL (7-18); BUN/CREATININE RATIO 8.5 (6.6-38.0); CALCIUM 8.7 MG/DL (8.5-10.1); CHLORIDE 107 MMOL/L (99-107); CREATININE 0.94 MG/DL (0.40-0.90); GLUCOSE 100 MG/DL (70-104); POTASSIUM 3.9 MMOL/L (3.5-5.1); SODIUM 141 MMOL/L (135-145); TOTAL CARBON DIOXIDE 23.2 MMOL/L (24-32); TOTAL PROTEIN 6.2 G/DL (6.4-8.2); eGFR 56 ML/MIN
[2019-06-02] MEDS: ipratropium 0.5 MG/2.5ML nebule NEB SCH (07:00)
[2019-06-02] MEDS ORDERED: ipratropium 0.5 MG/2.5ML nebule NEB PRN (08:05)
[2019-06-02] MEDS: aspirin 81mg tablet.DR PO SCH (08:09)
[2019-06-02] MEDS: clopidogrel 75mg tablet PO SCH (08:09)
[2019-06-02] MEDS: pantoprazole 40mg Tablet.DR PO SCH (08:09)
[2019-06-02] MEDS: levoTHYROXINE 100mcg tablet PO SCH (08:12)
[2019-06-02] MEDS: heparin, porcine 5000 units/ml vial SQ SCH (08:12)
[2019-06-02] MEDS: ondansetron/PF 4mg/2ml inj IV PRN (08:12)
[2019-06-02] MEDS: metoprolol succinate 25mg (24-HOUR) SR. Tablet PO SCH (08:12)
[2019-06-02] MEDS: lisinopril 20mg tablet PO SCH (08:13)
[2019-06-02 10:00] VITALS: BP 147/61
[2019-06-02] MEDS ORDERED: PROC5TAB56 PO (13:08)
[2019-06-02] MEDS ORDERED: ONDA4TAB12 PO (13:08)
== END 2019-06-02 15:15 | disposition home or self-care (01) | DRG 392 ==
LOC: ER 18:32 → ED HOLD 22:52 → ORTHO 4S 06-01 00:40
PROVIDERS: ADMIT Internal Medicine; ATTEND Family Medicine
DX: A08.4 Viral intestinal infection, unspecified (principal); I50.32 Chronic diastolic (congestive) heart failure; E03.9 Hypothyroidism, unspecified; E78.00 Pure hypercholesterolemia, unspecified; E78.5 Hyperlipidemia, unspecified; I11.0 Hypertensive heart disease with heart failure; I25.9 Chronic ischemic heart disease, unspecified; J44.9 Chronic obstructive pulmonary disease, unspecified; G89.29 Other chronic pain; K21.9 Gastro-esophageal reflux disease without esophagitis; K82.8 Other specified diseases of gallbladder; Z79.02 Long term (current) use of antithrombotics/antiplatelets; Z79.890 Hormone replacement therapy; Z79.899 Other long term (current) drug therapy; Z86.73 Personal history of transient ischemic attack (TIA), and cerebral infarction without residual deficits; Z90.710 Acquired absence of both cervix and uterus; Z88.2 Allergy status to sulfonamides; Z82.5 Family history of asthma and other chronic lower respiratory diseases; Z82.49 Family history of ischemic heart disease and other diseases of the circulatory system; Z79.82 Long term (current) use of aspirin
CPT/HCPCS: 36415; 71045; 76700; 78226; 80053; 81001; 82272; 83036; 83735; 84145; 85025; 85610; 87045; 87046; 87077; 87081; 87088; 87186; 87502; 87503; 93005; 94640; 94760; 96361; 96374; 96375; 99285; A9537; G0378; J0780; J1644; J2270; J2405; J2805; J7030

== ENCOUNTER 2019-06-11 19:07 | Emergency (ER) | payer MEDICARE, OTHER ==
[~2019-06-11] VITALS: Ht 152.4 cm; Wt 66.8 kg
[~2019-06-11 19:07] MED LIST changes: +ONDA4TAB12 PO; -ONDA4TAB6 PO
[2019-06-11 19:38] LABS: BASOPHILS # (AUTO) 0.2 X10'3 (0-0.2); BASOPHILS % (AUTO) 1.4 % (0-1); EOSINOPHILS # (AUTO) 0.2 X10'3 (0-0.9); EOSINOPHILS % (AUTO) 1.9 % (0-6); HEMATOCRIT 37.3 % (35.0-45.0); HEMOGLOBIN 12.3 g/dl (12.0-16.0); LYMPHOCYTES # (AUTO) 0.8 X10'3 (1.1-4.8); LYMPHOCYTES % (AUTO) 6.1 % (21-51); MEAN CORPUSCULAR HEMOGLOBIN 27.9 PG (27.0-31.0); MEAN CORPUSCULAR HGB CONC 32.9 g/dL (33.0-36.5); MEAN CORPUSCULAR VOLUME 84.9 FL (78-98); MEAN PLATELET VOLUME 7.2 FL (7.4-10.4); MONOCYTES # (AUTO) 0.9 X10'3 (0-0.9); MONOCYTES % (AUTO) 7.5 % (2-12); NEUTROPHILS # (AUTO) 10.3 X10'3 (1.8-7.7); NEUTROPHILS % (AUTO) 83.1 % (42-75); PLATELET COUNT 376 X10'3 (140-440); RED BLOOD COUNT 4.39 X10'6 (4.20-5.60); RED CELL DISTRIBUTION WIDTH 15.5 % (11.5-14.5); WHITE BLOOD COUNT 12.4 X10'3 (4.5-11.0)
[2019-06-11 19:50] LABS: ALANINE AMINOTRANSFERASE 16 U/L (12-78); ALBUMIN 3.2 G/DL (3.4-5.0); ALBUMIN/GLOBULIN RATIO 0.8 (1.1-1.5); ALKALINE PHOSPHATASE 86 IU/L (46-116); ANION GAP 10 (8-16); ASPARTATE AMINO TRANSFERASE 14 U/L (10-37); BILIRUBIN,TOTAL 0.7 MG/DL (0.1-1.0); BLOOD UREA NITROGEN 12 MG/DL (7-18); BUN/CREATININE RATIO 11.5 (6.6-38.0); CHLORIDE 107 MMOL/L (99-107); CREATININE 1.04 MG/DL (0.40-0.90); GLUCOSE 119 MG/DL (70-104); POTASSIUM 3.8 MMOL/L (3.5-5.1); SODIUM 142 MMOL/L (135-145); TOTAL CARBON DIOXIDE 24.9 MMOL/L (24-32); TOTAL PROTEIN 7.1 G/DL (6.4-8.2); eGFR 50 ML/MIN
[2019-06-11] MEDS ORDERED: normal saline 1000ML IV soln IVB ONE (20:55)
[2019-06-11] MEDS ORDERED: iohexol 300mg/ml 100ml inj. ONE (21:40)
--- NOTE | 2019-06-11 22:15 | NUR ---
PATIENT IV INFILTRATED, REPLACED AT THIS TIME. PATIENT REPEATEDLY ASKING FOR SOMETHING TO EAT. NURSING STAFF HAS EXPLAINED MULTIPLE TIMES TO THE PATIENT THAT SHE IS NPO AND THEREFORE CANNOT HAVE ANYTHING TO EAT OR DRINK
[2019-06-11 22:24] LABS: CLARITY,URINE CLEAR (Clear); COLOR,URINE YELLOW (Yellow); GLUCOSE, URINE NEGATIVE (Neg); KETONES,URINE NEGATIVE (Neg); LEUKOCYTE ESTERASE ,URINE TRACE (Neg); NITRITES, URINE NEGATIVE (Neg); OCCULT BLOOD,URINE TRACE-INTACT (Neg); PROTEIN,URINE 100 mg/dl (Neg); UROBILINOGEN,URINE 0.2 E.U/dL (0.2-1.0)
[2019-06-11 22:26] LABS: UA COLLECTION TYPE CLN CATCH MIDSTREAM
[2019-06-11 22:34] LABS: BACTERIA,URINE 1+ /HPF (Neg); WBC,URINE 0-4 /HPF (0-4)
[2019-06-11 22:35] LABS: HYALINE CASTS 0-3 /LPF (NEGATIVE); MUCUS STRANDS FEW /LPF (Neg); SQUAMOUS EPITHELIAL CELL,UR MODERATE /LPF (FEW)
[2019-06-12] MEDS ORDERED: ONDA4TAB6 PO (01:08)
[2019-06-12] MEDS ORDERED: METR500T PO (01:08)
[2019-06-12] MEDS ORDERED: CIPR-259 PO (01:08)
[2019-06-12 01:27] VITALS: BP 187/83
[2019-06-12 08:47] LABS: C DIFF ANTIGEN NEGATIVE (NEGATIVE); C DIFF SPECIMEN=DIARRHEA? ACCEPTABLE; C DIFFICILE TOXINS A&B NEGATIVE (Neg)
== END 2019-06-12 01:29 | disposition home or self-care (01) ==
LOC: ER 19:08
DX: K52.9 Noninfective gastroenteritis and colitis, unspecified (principal); K44.9 Diaphragmatic hernia without obstruction or gangrene; J90 Pleural effusion, not elsewhere classified; E86.0 Dehydration; I11.0 Hypertensive heart disease with heart failure; I50.9 Heart failure, unspecified; E78.00 Pure hypercholesterolemia, unspecified; J44.9 Chronic obstructive pulmonary disease, unspecified; K21.9 Gastro-esophageal reflux disease without esophagitis; G89.29 Other chronic pain; Z90.710 Acquired absence of both cervix and uterus; Z98.890 Other specified postprocedural states; Z95.4 Presence of other heart-valve replacement; Z95.0 Presence of cardiac pacemaker; Z86.73 Personal history of transient ischemic attack (TIA), and cerebral infarction without residual deficits; Z88.2 Allergy status to sulfonamides; Z79.82 Long term (current) use of aspirin; Z79.899 Other long term (current) drug therapy
CPT/HCPCS: 36415; 74177; 80053; 81001; 83605; 85025; 85610; 87045; 87046; 87088; 87324; 87449; 89055; 96360; 99284; J7030; Q9967

== ENCOUNTER 2019-06-22 04:10 | Emergency (ER) | payer MEDICARE, OTHER ==
[~2019-06-22] VITALS: Ht 152.4 cm; Wt 64.5 kg
[~2019-06-22 04:10] MED LIST changes: +CIPR-259 PO; -ONDA4TAB12 PO; +ONDA4TAB6 PO; -PANT-47 PO; -PROC5TAB56 PO
--- NOTE | 2019-06-22 04:13 | NUR ---
PT AT BEDSIDE
[2019-06-22] MEDS ORDERED: acetaminophen 325mg tablet PO STA (04:19)
[2019-06-22] MEDS ORDERED: ondansetron/PF 4mg/2ml inj IV ONE (04:40)
[2019-06-22] MEDS ORDERED: morphine 4 MG/ML inj SYRINge IV PRN (04:40)
[2019-06-22] MEDS ORDERED: normal saline 1000ML IV soln IVB ONE (04:40)
[2019-06-22] MEDS ORDERED: piperacillin/tazo 4.5gm/100ml 100 ML IV STA (04:40)
--- NOTE | 2019-06-22 04:40 | NUR ---
ASSISTED PT TO COMMODE TO OBTAIN UA. PT UNABLE TO GO AT THIS TIME. WILL CONTINUE TO ATTEMPT TO OBTAIN UA AND MONITOR.
[2019-06-22 04:57] LABS: BASOPHILS # (AUTO) 0.2 X10'3 (0-0.2); LYMPHOCYTES # (AUTO) 0.7 X10'3 (1.1-4.8); MEAN PLATELET VOLUME 7.8 FL (7.4-10.4); RED CELL DISTRIBUTION WIDTH 16.1 % (11.5-14.5)
[2019-06-22 04:59] LABS: BASOPHILS % (AUTO) 1.5 % (0-1); EOSINOPHILS # (AUTO) 0.2 X10'3 (0-0.9); EOSINOPHILS % (AUTO) 1.5 % (0-6); HEMATOCRIT 38.3 % (35.0-45.0); HEMOGLOBIN 12.5 g/dl (12.0-16.0); LYMPHOCYTES % (AUTO) 6.3 % (21-51); MEAN CORPUSCULAR HEMOGLOBIN 28.3 PG (27.0-31.0); MEAN CORPUSCULAR HGB CONC 32.7 g/dL (33.0-36.5); MEAN CORPUSCULAR VOLUME 86.6 FL (78-98); MONOCYTES # (AUTO) 0.9 X10'3 (0-0.9); MONOCYTES % (AUTO) 8.4 % (2-12); NEUTROPHILS % (AUTO) 82.3 % (42-75); PLATELET COUNT 268 X10'3 (140-440); RED BLOOD COUNT 4.42 X10'6 (4.20-5.60)
[2019-06-22 05:18] LABS: PARTIAL THROMBOPLASTIN TIME 34 SECONDS (22-32)
[2019-06-22 05:22] LABS: ALANINE AMINOTRANSFERASE 17 U/L (12-78); ALBUMIN 3.4 G/DL (3.4-5.0); ALBUMIN/GLOBULIN RATIO 0.8 (1.1-1.5); ALKALINE PHOSPHATASE 81 IU/L (46-116); ANION GAP 10 (8-16); ASPARTATE AMINO TRANSFERASE 20 U/L (10-37); BILIRUBIN,TOTAL 0.7 MG/DL (0.1-1.0); BLOOD UREA NITROGEN 15 MG/DL (7-18); BUN/CREATININE RATIO 14.7 (6.6-38.0); CALCIUM 9.1 MG/DL (8.5-10.1); CHLORIDE 106 MMOL/L (99-107); CREATININE 1.02 MG/DL (0.40-0.90); GLUCOSE 143 MG/DL (70-104); POTASSIUM 3.5 MMOL/L (3.5-5.1); SODIUM 143 MMOL/L (135-145); TOTAL CARBON DIOXIDE 27.4 MMOL/L (24-32); TOTAL PROTEIN 7.5 G/DL (6.4-8.2); eGFR 51 ML/MIN
[2019-06-22] MEDS ORDERED: ONDA4TAB12 PO (05:34)
[2019-06-22] MEDS ORDERED: AMOX-422 PO (05:34)
--- NOTE | 2019-06-22 05:45 | NUR ---
PER MD OHLFS, INCREASE ZOSYN RATE TO 100ML/HOUR
[2019-06-22 06:00] LABS: TROPONIN I < 0.04 NG/ML (0.0-0.05)
[2019-06-22 06:18] VITALS: BP 114/59
== END 2019-06-22 06:17 | disposition home or self-care (01) ==
LOC: ER 04:10
DX: R11.2 Nausea with vomiting, unspecified (principal); R10.30 Lower abdominal pain, unspecified; R19.7 Diarrhea, unspecified; R05 Cough; I11.0 Hypertensive heart disease with heart failure; I50.9 Heart failure, unspecified; G89.29 Other chronic pain; J44.9 Chronic obstructive pulmonary disease, unspecified; K21.9 Gastro-esophageal reflux disease without esophagitis; F10.99 Alcohol use, unspecified with unspecified alcohol-induced disorder; Z86.73 Personal history of transient ischemic attack (TIA), and cerebral infarction without residual deficits; Z90.710 Acquired absence of both cervix and uterus; Z98.890 Other specified postprocedural states; Z95.0 Presence of cardiac pacemaker; Z88.2 Allergy status to sulfonamides; Z79.82 Long term (current) use of aspirin; Z79.899 Other long term (current) drug therapy; Y90.9 Presence of alcohol in blood, level not specified
CPT/HCPCS: 36415; 71045; 80053; 83605; 84145; 84484; 85025; 85610; 85730; 87040; 93005; 96365; 96375; 99284; J2270; J2405; J2543; J7030

== ENCOUNTER 2019-12-31 11:53 | Emergency (ER) | payer MEDICARE, BC ==
[~2019-12-31] VITALS: Ht 152.4 cm; Wt 66.8 kg
[~2019-12-31 11:53] MED LIST changes: -CIPR-259 PO; +ONDA4TAB12 PO
[2019-12-31 12:35] LABS: BASOPHILS # (AUTO) 0.2 X10'3 (0-0.2); EOSINOPHILS # (AUTO) 0.1 X10'3 (0-0.9); EOSINOPHILS % (AUTO) 1.4 % (0-6); HEMATOCRIT 44.8 % (35.0-45.0); HEMOGLOBIN 14.9 g/dl (12.0-16.0); LYMPHOCYTES # (AUTO) 1.5 X10'3 (1.1-4.8); LYMPHOCYTES % (AUTO) 13.6 % (21-51); MEAN CORPUSCULAR HEMOGLOBIN 29.8 PG (27.0-31.0); MEAN CORPUSCULAR HGB CONC 33.3 g/dL (33.0-36.5); MEAN CORPUSCULAR VOLUME 89.8 FL (78-98); MEAN PLATELET VOLUME 8.1 FL (7.4-10.4); MONOCYTES # (AUTO) 0.8 X10'3 (0-0.9); MONOCYTES % (AUTO) 7.3 % (2-12); NEUTROPHILS # (AUTO) 8.1 X10'3 (1.8-7.7); NEUTROPHILS % (AUTO) 75.7 % (42-75); PLATELET COUNT 328 X10'3 (140-440); RED BLOOD COUNT 4.99 X10'6 (4.20-5.60); RED CELL DISTRIBUTION WIDTH 14.1 % (11.5-14.5); WHITE BLOOD COUNT 10.7 X10'3 (4.5-11.0)
[2019-12-31 12:49] LABS: PARTIAL THROMBOPLASTIN TIME 33 SECONDS (22-32)
[2019-12-31 13:01] LABS: ALANINE AMINOTRANSFERASE 16 U/L (12-78); ALBUMIN 3.5 G/DL (3.4-5.0); ALBUMIN/GLOBULIN RATIO 0.9 (1.1-1.5); ALKALINE PHOSPHATASE 80 IU/L (46-116); AMYLASE 90 U/L (25-115); ANION GAP 10 (8-16); ASPARTATE AMINO TRANSFERASE 26 U/L (10-37); BILIRUBIN,TOTAL 0.5 MG/DL (0.1-1.0); BLOOD UREA NITROGEN 20 MG/DL (7-18); BUN/CREATININE RATIO 14.5 (6.6-38.0); CALCIUM 9.9 MG/DL (8.5-10.1); CHLORIDE 104 MMOL/L (99-107); CREATININE 1.38 MG/DL (0.40-0.90); GLUCOSE 129 MG/DL (70-104); LIPASE 224 U/L (73-393); POTASSIUM 3.7 MMOL/L (3.5-5.1); SODIUM 141 MMOL/L (135-145); TOTAL CARBON DIOXIDE 26.6 MMOL/L (24-32); TOTAL PROTEIN 7.3 G/DL (6.4-8.2); eGFR 36 ML/MIN
[2019-12-31] MEDS ORDERED: ondansetron/PF 4mg/2ml inj IV ONE (14:20)
[2019-12-31] MEDS ORDERED: normal saline 1000ml 1,000 ML IV ONE (14:20)
[2019-12-31 15:54] LABS: CLARITY,URINE CLEAR (Clear); COLOR,URINE YELLOW (Yellow); GLUCOSE, URINE NEGATIVE (Neg); KETONES,URINE NEGATIVE (Neg); LEUKOCYTE ESTERASE ,URINE SMALL (Neg); NITRITES, URINE NEGATIVE (Neg); OCCULT BLOOD,URINE SMALL (Neg); PROTEIN,URINE 30 mg/dl (Neg); UROBILINOGEN,URINE 0.2 E.U/dL (0.2-1.0)
[2019-12-31 15:55] LABS: UA COLLECTION TYPE CLN CATCH MIDSTREAM
[2019-12-31 16:01] LABS: SQUAMOUS EPITHELIAL CELL,UR MANY /LPF (FEW)
[2019-12-31 16:02] LABS: HYALINE CASTS 0-3 /LPF (NEGATIVE)
[2019-12-31 16:04] LABS: AMORPHOUS URATES 1+; BACTERIA,URINE FEW /HPF (Neg); WBC,URINE 0-4 /HPF (0-4)
[2019-12-31] MEDS ORDERED: ONDA4TAB6 PO (16:30)
[2019-12-31 17:47] VITALS: BP 147/72
== END 2019-12-31 17:44 | disposition home or self-care (01) ==
LOC: ER 11:54
DX: R10.13 Epigastric pain (principal); R11.2 Nausea with vomiting, unspecified; I50.9 Heart failure, unspecified; E78.00 Pure hypercholesterolemia, unspecified; I11.0 Hypertensive heart disease with heart failure; J44.9 Chronic obstructive pulmonary disease, unspecified; K21.9 Gastro-esophageal reflux disease without esophagitis; G89.29 Other chronic pain; Z86.73 Personal history of transient ischemic attack (TIA), and cerebral infarction without residual deficits; Z90.710 Acquired absence of both cervix and uterus; Z95.0 Presence of cardiac pacemaker; Z98.890 Other specified postprocedural states; Z88.2 Allergy status to sulfonamides; Z79.82 Long term (current) use of aspirin; Z79.899 Other long term (current) drug therapy
CPT/HCPCS: 36415; 71045; 80053; 81001; 82150; 83690; 84484; 85025; 85610; 85730; 93005; 96361; 96374; 99285; J2405; J7030

== ENCOUNTER 2020-05-17 19:05 | Emergency (ER) | payer MEDICARE, BC ==
[~2020-05-17] VITALS: Ht 152.4 cm; Wt 79.1 kg
[~2020-05-17 19:05] MED LIST changes: -ASPI-611 PO; -CLOP75TA15 PO; +FERR-106 PO; -FERR324T4 PO; -METO-395 PO; +METO50TA17 PO; -ONDA4TAB6 PO; +PANT40SU2 PO
[2020-05-17 19:52] LABS: BASOPHILS # (AUTO) 0.1 X10'3 (0-0.2); BASOPHILS % (AUTO) 1.2 % (0-1); EOSINOPHILS # (AUTO) 0.2 X10'3 (0-0.9); EOSINOPHILS % (AUTO) 2.3 % (0-6); HEMATOCRIT 36.1 % (35.0-45.0); HEMOGLOBIN 12.5 g/dl (12.0-16.0); LYMPHOCYTES % (AUTO) 11.6 % (21-51); MEAN CORPUSCULAR HEMOGLOBIN 31.5 PG (27.0-31.0); MEAN CORPUSCULAR HGB CONC 34.6 g/dL (33.0-36.5); MEAN CORPUSCULAR VOLUME 91.1 FL (78-98); MEAN PLATELET VOLUME 8.5 FL (7.4-10.4); MONOCYTES % (AUTO) 12.1 % (2-12); NEUTROPHILS % (AUTO) 72.8 % (42-75); PLATELET COUNT 204 X10'3 (140-440); RED BLOOD COUNT 3.96 X10'6 (4.20-5.60); RED CELL DISTRIBUTION WIDTH 13.2 % (11.5-14.5); WHITE BLOOD COUNT 8.3 X10'3 (4.5-11.0)
[2020-05-17 20:09] VITALS: BP 176/100
[2020-05-17 20:14] LABS: COLOR,URINE YELLOW (Yellow); GLUCOSE, URINE NEGATIVE (Neg); KETONES,URINE NEGATIVE (Neg); LEUKOCYTE ESTERASE ,URINE TRACE (Neg); NITRITES, URINE NEGATIVE (Neg); OCCULT BLOOD,URINE MODERATE (Neg); PROTEIN,URINE 100 mg/dl (Neg)
[2020-05-17 20:21] LABS: CLARITY,URINE SLIGHTLY CLOUDY (Clear); UA COLLECTION TYPE CLN CATCH MIDSTREAM
[2020-05-17 20:22] LABS: BACTERIA,URINE FEW /HPF (Neg); MUCUS STRANDS FEW /LPF (Neg); RBC,URINE 0-2 /HPF (0-2); SQUAMOUS EPITHELIAL CELL,UR FEW /LPF (FEW)
[2020-05-17 20:26] LABS: ALANINE AMINOTRANSFERASE 16 U/L (12-78); ALBUMIN 3.6 G/DL (3.4-5.0); ALKALINE PHOSPHATASE 67 IU/L (46-116); ANION GAP 10 (8-16); ASPARTATE AMINO TRANSFERASE 20 U/L (10-37); BILIRUBIN,TOTAL 1.1 MG/DL (0.1-1.0); BLOOD UREA NITROGEN 14 MG/DL (7-18); BUN/CREATININE RATIO 12.8 (6.6-38.0); CALCIUM 9.6 MG/DL (8.5-10.1); CHLORIDE 106 MMOL/L (99-107); CREATININE 1.09 MG/DL (0.40-0.90); GLUCOSE 112 MG/DL (70-104); SODIUM 139 MMOL/L (135-145); TOTAL CARBON DIOXIDE 23.3 MMOL/L (24-32); TOTAL PROTEIN 7.2 G/DL (6.4-8.2); eGFR 47 ML/MIN
[2020-05-17 20:27] LABS: POTASSIUM 3.8 MMOL/L (3.5-5.1)
[2020-05-17 20:33] LABS: LIPASE 132 U/L (73-393)
[2020-05-17] MEDS ORDERED: furosemide 10 MG/1 ML 10ml inj IV ONE (20:50)
[2020-05-17] MEDS ORDERED: ONDA8TAB6 PO (21:41)
== END 2020-05-17 21:56 | disposition home or self-care (01) ==
LOC: ER 19:05
DX: R11.2 Nausea with vomiting, unspecified (principal); R10.13 Epigastric pain; I50.22 Chronic systolic (congestive) heart failure; E78.00 Pure hypercholesterolemia, unspecified; I11.0 Hypertensive heart disease with heart failure; J44.9 Chronic obstructive pulmonary disease, unspecified; K21.9 Gastro-esophageal reflux disease without esophagitis; G89.29 Other chronic pain; Z86.73 Personal history of transient ischemic attack (TIA), and cerebral infarction without residual deficits; Z90.710 Acquired absence of both cervix and uterus; Z98.890 Other specified postprocedural states; Z95.0 Presence of cardiac pacemaker; Z72.89 Other problems related to lifestyle; Z88.2 Allergy status to sulfonamides; Z79.899 Other long term (current) drug therapy
CPT/HCPCS: 36415; 71045; 74176; 80053; 81001; 83690; 83880; 84484; 85025; 87077; 87088; 87186; 93005; 96374; 99285; J1940

== ENCOUNTER 2020-05-24 09:50 | Emergency (ER) | payer BC, MEDICARE ==
[~2020-05-24] VITALS: Ht 152.4 cm; Wt 79.0 kg
[~2020-05-24 09:50] MED LIST changes: +ONDA8TAB6 PO
--- NOTE | 2020-05-24 10:00 | NUR ---
EKG 7885
[2020-05-24 11:03] LABS: BASOPHILS # (AUTO) 0.2 X10'3 (0-0.2); BASOPHILS % (AUTO) 1.8 % (0-1); EOSINOPHILS # (AUTO) 0.5 X10'3 (0-0.9); EOSINOPHILS % (AUTO) 5.3 % (0-6); HEMATOCRIT 34.2 % (35.0-45.0); HEMOGLOBIN 11.9 g/dl (12.0-16.0); LYMPHOCYTES # (AUTO) 0.6 X10'3 (1.1-4.8); LYMPHOCYTES % (AUTO) 6.4 % (21-51); MEAN CORPUSCULAR HEMOGLOBIN 31.5 PG (27.0-31.0); MEAN CORPUSCULAR HGB CONC 34.7 g/dL (33.0-36.5); MEAN CORPUSCULAR VOLUME 90.7 FL (78-98); MEAN PLATELET VOLUME 8.1 FL (7.4-10.4); MONOCYTES # (AUTO) 0.5 X10'3 (0-0.9); MONOCYTES % (AUTO) 5.3 % (2-12); NEUTROPHILS # (AUTO) 7.1 X10'3 (1.8-7.7); NEUTROPHILS % (AUTO) 81.2 % (42-75); PLATELET COUNT 200 X10'3 (140-440); RED BLOOD COUNT 3.77 X10'6 (4.20-5.60); RED CELL DISTRIBUTION WIDTH 13.4 % (11.5-14.5); WHITE BLOOD COUNT 8.7 X10'3 (4.5-11.0)
[2020-05-24 11:22] LABS: ALANINE AMINOTRANSFERASE 16 U/L (12-78); ALBUMIN 3.4 G/DL (3.4-5.0); ALKALINE PHOSPHATASE 74 IU/L (46-116); ANION GAP 10 (8-16); ASPARTATE AMINO TRANSFERASE 19 U/L (10-37); BILIRUBIN,TOTAL 1.1 MG/DL (0.1-1.0); BLOOD UREA NITROGEN 9 MG/DL (7-18); BUN/CREATININE RATIO 8.6 (6.6-38.0); CALCIUM 9.1 MG/DL (8.5-10.1); CHLORIDE 106 MMOL/L (99-107); CREATININE 1.05 MG/DL (0.40-0.90); GLUCOSE 117 MG/DL (70-104); POTASSIUM 3.6 MMOL/L (3.5-5.1); SODIUM 139 MMOL/L (135-145); TOTAL CARBON DIOXIDE 22.7 MMOL/L (24-32); TOTAL PROTEIN 6.7 G/DL (6.4-8.2); eGFR 49 ML/MIN
[2020-05-24 11:29] LABS: TROPONIN I < 0.04 NG/ML (0.0-0.05)
[2020-05-24 12:13] LABS: CLARITY,URINE SLIGHTLY CLOUDY (Clear); COLOR,URINE YELLOW (Yellow); GLUCOSE, URINE NEGATIVE (Neg); KETONES,URINE NEGATIVE (Neg); LEUKOCYTE ESTERASE ,URINE NEGATIVE (Neg); NITRITES, URINE NEGATIVE (Neg); OCCULT BLOOD,URINE SMALL (Neg); PROTEIN,URINE 100 mg/dl (Neg)
[2020-05-24 12:17] LABS: UA COLLECTION TYPE NON-SPECIFIED
[2020-05-24 12:19] LABS: BACTERIA,URINE 1+ /HPF (Neg); FINE GRANULAR CAST 0-3 /LPF (NEGATIVE); MUCUS STRANDS NONE SEEN /LPF (Neg); SQUAMOUS EPITHELIAL CELL,UR MODERATE /LPF (FEW); WBC CLUMPS,URINE FEW /HPF (NEGATIVE)
[2020-05-24] MEDS ORDERED: CEPH250T PO (12:34)
[2020-05-24] MEDS ORDERED: cephalexin 250mg capsule PO ONE (12:35)
[2020-05-24 13:03] VITALS: BP 202/84
== END 2020-05-24 12:48 | disposition home or self-care (01) ==
LOC: ER 09:51
DX: N39.0 Urinary tract infection, site not specified (principal); R06.02 Shortness of breath; R11.2 Nausea with vomiting, unspecified; I50.9 Heart failure, unspecified; I11.0 Hypertensive heart disease with heart failure; E78.00 Pure hypercholesterolemia, unspecified; J44.9 Chronic obstructive pulmonary disease, unspecified; K21.9 Gastro-esophageal reflux disease without esophagitis; G89.29 Other chronic pain; Z90.49 Acquired absence of other specified parts of digestive tract; Z90.710 Acquired absence of both cervix and uterus; Z98.890 Other specified postprocedural states; Z72.89 Other problems related to lifestyle; Z88.2 Allergy status to sulfonamides; Z79.899 Other long term (current) drug therapy
CPT/HCPCS: 71046; 80053; 81001; 83605; 83880; 84145; 84484; 85025; 87040; 87088; 93005; 99285

== ENCOUNTER 2020-06-05 10:21 | Emergency (ER) | payer MEDICARE ==
[~2020-06-05] VITALS: Ht 165.1 cm; Wt 63.6 kg
[2020-06-05] MEDS ORDERED: normal saline 1000ML IV soln IV ONE (11:20)
--- NOTE | 2020-06-05 12:00 | NUR ---
pt is hard stick tried twice to get iv on pt willwait for teddy garcia to start iv line.
[2020-06-05 12:58] LABS: BASOPHILS # (AUTO) 0.1 X10'3 (0-0.2); BASOPHILS % (AUTO) 1.2 % (0-1); EOSINOPHILS # (AUTO) 0.2 X10'3 (0-0.9); EOSINOPHILS % (AUTO) 1.5 % (0-6); HEMATOCRIT 37.1 % (35.0-45.0); HEMOGLOBIN 12.5 g/dl (12.0-16.0); LYMPHOCYTES # (AUTO) 0.6 X10'3 (1.1-4.8); LYMPHOCYTES % (AUTO) 6.2 % (21-51); MEAN CORPUSCULAR HEMOGLOBIN 30.5 PG (27.0-31.0); MEAN CORPUSCULAR HGB CONC 33.8 g/dL (33.0-36.5); MEAN CORPUSCULAR VOLUME 90.1 FL (78-98); MEAN PLATELET VOLUME 7.9 FL (7.4-10.4); MONOCYTES # (AUTO) 0.8 X10'3 (0-0.9); MONOCYTES % (AUTO) 8.4 % (2-12); NEUTROPHILS # (AUTO) 8.3 X10'3 (1.8-7.7); NEUTROPHILS % (AUTO) 82.7 % (42-75); PLATELET COUNT 260 X10'3 (140-440); RED BLOOD COUNT 4.11 X10'6 (4.20-5.60)
[2020-06-05 13:19] LABS: CLARITY,URINE CLEAR (Clear); COLOR,URINE YELLOW (Yellow); GLUCOSE, URINE NEGATIVE (Neg); KETONES,URINE NEGATIVE (Neg); LEUKOCYTE ESTERASE ,URINE NEGATIVE (Neg); NITRITES, URINE NEGATIVE (Neg); OCCULT BLOOD,URINE SMALL (Neg); PROTEIN,URINE 100 mg/dl (Neg); UROBILINOGEN,URINE 0.2 E.U/dL (0.2-1.0)
[2020-06-05 13:20] LABS: ALANINE AMINOTRANSFERASE 18 U/L (12-78); ALBUMIN 3.5 G/DL (3.4-5.0); ALKALINE PHOSPHATASE 87 IU/L (46-116); ANION GAP 7 (8-16); ASPARTATE AMINO TRANSFERASE 19 U/L (10-37); BILIRUBIN,TOTAL 1.3 MG/DL (0.1-1.0); BLOOD UREA NITROGEN 9 MG/DL (7-18); CALCIUM 9.3 MG/DL (8.5-10.1); CHLORIDE 105 MMOL/L (99-107); GLUCOSE 123 MG/DL (70-104); MAGNESIUM 1.8 MG/DL (1.5-2.4); POTASSIUM 3.8 MMOL/L (3.5-5.1); SODIUM 138 MMOL/L (135-145); TOTAL CARBON DIOXIDE 26.1 MMOL/L (24-32); eGFR 52 ML/MIN
[2020-06-05 13:26] LABS: UA COLLECTION TYPE CLN CATCH MIDSTREAM
[2020-06-05 13:28] LABS: BACTERIA,URINE FEW /HPF (Neg); MUCUS STRANDS FEW /LPF (Neg); SQUAMOUS EPITHELIAL CELL,UR MODERATE /LPF (FEW); WBC,URINE 0-4 /HPF (0-4)
[2020-06-05 14:16] VITALS: BP 186/104
--- NOTE | 2020-06-05 14:35 | NUR ---
during gait test pt O2 sats 89-90% on RA, provider was made aware and is ok with her being discharged.
--- NOTE | 2020-06-05 14:47 | NUR ---
PT STATED TAHT SHE USES OXYGEN AT HOME ,PT REQUESTED TO CALL HER TO GET O2 TANK FOR TRASPO ,PT SHAN CALLED HE IS GOING TO BE HERE IN 15 MINS.
== END 2020-06-05 15:08 | disposition home or self-care (01) ==
LOC: ER 10:22
DX: R55 Syncope and collapse (principal); R35.1 Nocturia; R06.02 Shortness of breath; I50.9 Heart failure, unspecified; E78.00 Pure hypercholesterolemia, unspecified; I11.0 Hypertensive heart disease with heart failure; J44.9 Chronic obstructive pulmonary disease, unspecified; K21.9 Gastro-esophageal reflux disease without esophagitis; R11.2 Nausea with vomiting, unspecified; G89.29 Other chronic pain; Z86.73 Personal history of transient ischemic attack (TIA), and cerebral infarction without residual deficits; Z72.89 Other problems related to lifestyle; Z88.2 Allergy status to sulfonamides; Z79.899 Other long term (current) drug therapy
CPT/HCPCS: 36415; 71045; 80053; 81001; 83605; 83735; 84145; 85025; 87040; 93005; 96360; 99285; J7030

== ENCOUNTER 2020-06-13 00:37 | Inpatient (IN) | payer MEDICARE ==
[~2020-06-13] VITALS: Ht 152.4 cm; Wt 68.8 kg
[2020-06-13] VITALS (10 sets, daily range): BP systolic 133–172; BP diastolic 40–71
[2020-06-13] MEDS ORDERED: aspirin 325mg tablet PO ONE (01:00)
[2020-06-13] MEDS ORDERED: aspirin 81mg tab.chew PO ONE (01:00)
[2020-06-13 01:03] LABS: BASOPHILS # (AUTO) 0.1 X10'3 (0-0.2); BASOPHILS % (AUTO) 1.5 % (0-1); EOSINOPHILS # (AUTO) 0.3 X10'3 (0-0.9); EOSINOPHILS % (AUTO) 3.4 % (0-6); HEMATOCRIT 34.1 % (35.0-45.0); HEMOGLOBIN 11.8 g/dl (12.0-16.0); LYMPHOCYTES # (AUTO) 0.9 X10'3 (1.1-4.8); LYMPHOCYTES % (AUTO) 10.3 % (21-51); MEAN CORPUSCULAR HEMOGLOBIN 31.1 PG (27.0-31.0); MEAN CORPUSCULAR HGB CONC 34.5 g/dL (33.0-36.5); MEAN CORPUSCULAR VOLUME 90.2 FL (78-98); MEAN PLATELET VOLUME 7.6 FL (7.4-10.4); MONOCYTES # (AUTO) 1.1 X10'3 (0-0.9); MONOCYTES % (AUTO) 13.3 % (2-12); NEUTROPHILS # (AUTO) 6.1 X10'3 (1.8-7.7); NEUTROPHILS % (AUTO) 71.5 % (42-75); PLATELET COUNT 243 X10'3 (140-440); RED BLOOD COUNT 3.78 X10'6 (4.20-5.60); RED CELL DISTRIBUTION WIDTH 14.1 % (11.5-14.5); WHITE BLOOD COUNT 8.6 X10'3 (4.5-11.0)
[2020-06-13 01:15] LABS: ALANINE AMINOTRANSFERASE 12 U/L (12-78); ALBUMIN 3.2 G/DL (3.4-5.0); ALBUMIN/GLOBULIN RATIO 0.9 (1.1-1.5); ALKALINE PHOSPHATASE 81 IU/L (46-116); ANION GAP 10 (8-16); ASPARTATE AMINO TRANSFERASE 17 U/L (10-37); BILIRUBIN,TOTAL 1.2 MG/DL (0.1-1.0); BLOOD UREA NITROGEN 10 MG/DL (7-18); CHLORIDE 103 MMOL/L (99-107); CREATININE 1.11 MG/DL (0.40-0.90); GLUCOSE 118 MG/DL (70-104); POTASSIUM 3.9 MMOL/L (3.5-5.1); SODIUM 139 MMOL/L (135-145); TOTAL CARBON DIOXIDE 26.1 MMOL/L (24-32); TOTAL PROTEIN 6.6 G/DL (6.4-8.2); eGFR 46 ML/MIN
[2020-06-13] MEDS ORDERED: magnesium 4gm in 100ml NS 100 ML IV PRN (01:50)
[2020-06-13] MEDS ORDERED: potassium CL 10mEq/100ml bag 100 ML IV PRN ×2 (01:50)
[2020-06-13] MEDS ORDERED: HYDROcodone/acetaminophen 10/325mg tab PO PRN (01:50)
[2020-06-13] MEDS ORDERED: ondansetron/PF 4mg/2ml inj IV PRN (01:50)
[2020-06-13] MEDS ORDERED: potassium Cl 20 mEq SR tablet PO PRN ×2 (01:50)
[2020-06-13] MEDS ORDERED: magnesium 2GM in 50ml NS 50 ML IV PRN (01:50)
[2020-06-13] MEDS ORDERED: ipratropium/albuterol 3ml nebule NEB PRN ×2 (01:50→02:30)
[2020-06-13] MEDS ORDERED: acetaminophen 325mg tablet PO PRN ×2 (01:50)
[2020-06-13] MEDS ORDERED: aminophylline 250mg/10ml inj. IV PRN (01:55)
[2020-06-13] MEDS ORDERED: regadenoson 0.4mg/5ml syringe IV PRN (01:55)
[2020-06-13] MEDS ORDERED: nitroGLYCERIN 0.4mg SUBLingual tab SL PRN (01:55)
[2020-06-13] MEDS ORDERED: metoprolol tartrate 1mg/ml inj IV PRN (01:55)
[2020-06-13] MEDS: HYDROcodone/acetaminophen 5mg/325mg tablet PO PRN ×2 (03:59→12:46)
--- NOTE | 2020-06-13 06:17 | NUR ---
Problems reprioritized. Patient report given, questions answered & plan of care reviewed with Camila PIERCE
--- NOTE | 2020-06-13 06:20 | NUR ---
Patient in room PCU 3021H. I have received report from Garland PIERCE and had the opportunity to ask questions and assume patient care.
[2020-06-13] MEDS ORDERED: docusate sod 100mg capsule PO SCH (08:00)
[2020-06-13] MEDS ORDERED: K and/or MAG REPLACEMENT MC SCH (08:00)
[2020-06-13] MEDS: nystatin 15 GM powder TP SCH ×2 (08:00→13:00)
--- NOTE | 2020-06-13 09:50 | NUR ---
Patient to calvin scan
[2020-06-13] MEDS ORDERED: FLU VACC QS2020-21(6MOS UP)/PF 60 MCG/0.5 ML SYRINGE IMVAC ONE (10:00)
[2020-06-13] MEDS ORDERED: PANT40TA54 PO (11:37)
[2020-06-13] MEDS ORDERED: CLOP75TA35 PO (11:37)
--- NOTE | 2020-06-13 12:31 | NUR ---
PAGER ID: [phone] MESSAGE: Camila galloway [phone]. RE Travis Perez [id number]. Pt calvin neg, going to feed. Med rec done. Pt back in room.
--- NOTE | 2020-06-13 14:50 | NUR ---
Per MD order by Dr. Patel, patient is stable for discharge home. Discharge packet printed and reviewed with patient. IV removed, tele monitor removed. Discharge instructions, return precautions, and follow up discussed with patient, all questions answered. Home medications returned from pharmacy, no new prescriptions for patient. All belongings sent with patient. Patient escorted via wheelchair to private vehicle to go home with family.
[2020-06-13] MEDS ORDERED: enoxaparin 40mg/0.4ml syringe SQ SCH (20:00)
[2020-06-14] MEDS ORDERED: PANT-47 PO (06:49)
== END 2020-06-13 15:27 | disposition home or self-care (01) | DRG 313 ==
LOC: ER 00:38 → ED HOLD 01:46 → PCU 3S 03:42
PROVIDERS: ADMIT Family Medicine; ATTEND Internal Medicine
PROC: 3E02340 Introduction of Influenza Vaccine into Muscle, Percutaneous Approach (ICD-10-PCS; principal; 2020-06-13)
PROC: 4A02XM4 Measurement of Cardiac Total Activity, External Approach (ICD-10-PCS; 2020-06-13)
PROC: 3E073KZ Introduction of Other Diagnostic Substance into Coronary Artery, Percutaneous Approach (ICD-10-PCS; 2020-06-13)
DX: R07.89 Other chest pain (principal); E03.9 Hypothyroidism, unspecified; E78.00 Pure hypercholesterolemia, unspecified; E78.5 Hyperlipidemia, unspecified; I11.0 Hypertensive heart disease with heart failure; I05.0 Rheumatic mitral stenosis; N28.9 Disorder of kidney and ureter, unspecified; G89.29 Other chronic pain; K21.9 Gastro-esophageal reflux disease without esophagitis; I50.9 Heart failure, unspecified; J44.9 Chronic obstructive pulmonary disease, unspecified; Z82.5 Family history of asthma and other chronic lower respiratory diseases; Z86.73 Personal history of transient ischemic attack (TIA), and cerebral infarction without residual deficits; Z90.710 Acquired absence of both cervix and uterus; Z95.2 Presence of prosthetic heart valve; Z23 Encounter for immunization; Z88.2 Allergy status to sulfonamides; Z95.0 Presence of cardiac pacemaker; Z82.49 Family history of ischemic heart disease and other diseases of the circulatory system; Z79.899 Other long term (current) drug therapy; Z98.51 Tubal ligation status
CPT/HCPCS: 36415; 71045; 78452; 80053; 83880; 84484; 85025; 87081; 93005; 93017; 93306; 93308; 94760; 99285; A9500; G0378; J2785; Q2039

== ENCOUNTER 2020-06-14 05:54 | Emergency (ER) | payer MEDICARE ==
[~2020-06-14] VITALS: Ht 152.4 cm; Wt 69.1 kg
[~2020-06-14 05:54] MED LIST changes: +CLOP75TA35 PO; -NITR0.4T SL; -ONDA4TAB12 PO; -ONDA8TAB6 PO; -PANT40SU2 PO; +PANT40TA54 PO; -POTA8CAP20 PO
[2020-06-14] MEDS ORDERED: aspirin 81mg tab.chew PO ONE (06:00)
[2020-06-14] MEDS ORDERED: LIDOcaine Viscous 15ml cup MM ONE (06:15)
[2020-06-14] MEDS ORDERED: magnesium hydroxide 30ml (MOM) UD suspension PO ONE (06:15)
[2020-06-14] MEDS ORDERED: mag hydrox/Alum hydrox/simeth 30ml oral suspension PO ONE (06:15)
--- NOTE | 2020-06-14 06:22 | NUR ---
TRIED AN iv UNSUCCESSFULLY IN LEFT ac
--- NOTE | 2020-06-14 06:35 | NUR ---
PT ASPIRATED POST SWALLOWING CHEWED ASA. O2 SATS @ 95%. PT STATED, "i HATE WHEN THAT HAPPENS." WHEN ASKED ABOUT FREQUENCY OF ASPIRATION PT REPLIED, "NOT THAT UCH, BUT SOMETIMES." EDMD ROLLE AWARE. WILL CONTINUE TO MONITOR FOR DISTRESS & O2 LEVELS.
[2020-06-14] MEDS ORDERED: PANT-47 PO (06:49)
[2020-06-14 07:05] LABS: ALANINE AMINOTRANSFERASE 14 U/L (12-78); ALBUMIN 3.2 G/DL (3.4-5.0); ALBUMIN/GLOBULIN RATIO 0.9 (1.1-1.5); ALKALINE PHOSPHATASE 73 IU/L (46-116); ANION GAP 8 (8-16); ASPARTATE AMINO TRANSFERASE 17 U/L (10-37); BILIRUBIN,TOTAL 1.3 MG/DL (0.1-1.0); BLOOD UREA NITROGEN 13 MG/DL (7-18); BUN/CREATININE RATIO 12.1 (6.6-38.0); CALCIUM 9.1 MG/DL (8.5-10.1); CHLORIDE 103 MMOL/L (99-107); CREATININE 1.07 MG/DL (0.40-0.90); MAGNESIUM 1.7 MG/DL (1.5-2.4); POTASSIUM 3.9 MMOL/L (3.5-5.1); SODIUM 137 MMOL/L (135-145); TOTAL PROTEIN 6.7 G/DL (6.4-8.2); eGFR 48 ML/MIN
[2020-06-14 07:11] LABS: GLUCOSE 101 MG/DL (70-104)
[2020-06-14 07:36] VITALS: BP 156/66
== END 2020-06-14 07:58 | disposition home or self-care (01) ==
LOC: ER 05:54
DX: K21.9 Gastro-esophageal reflux disease without esophagitis (principal); R07.89 Other chest pain; I50.9 Heart failure, unspecified; E78.00 Pure hypercholesterolemia, unspecified; I11.0 Hypertensive heart disease with heart failure; J44.9 Chronic obstructive pulmonary disease, unspecified; G89.29 Other chronic pain; Z86.73 Personal history of transient ischemic attack (TIA), and cerebral infarction without residual deficits; Z98.890 Other specified postprocedural states; Z72.89 Other problems related to lifestyle; Z88.2 Allergy status to sulfonamides; Z79.899 Other long term (current) drug therapy
CPT/HCPCS: 36415; 71045; 80053; 83735; 83880; 84484; 93005; 99285

== ENCOUNTER 2020-07-16 17:28 | Emergency (ER) | payer MEDICARE ==
[~2020-07-16] VITALS: Ht 152.4 cm; Wt 78.9 kg
[~2020-07-16 17:28] MED LIST changes: +PANT-47 PO
[2020-07-16] MEDS ORDERED: acetaminophen 325mg tablet PO ONE (17:40)
[2020-07-16] MEDS ORDERED: ondansetron 4mg/5ml UD cup PO ONE (17:40)
[2020-07-16] MEDS ORDERED: ondansetron 4mg rapidly disintigrating tab PO ONE (17:50)
[2020-07-16] MEDS ORDERED: ondansetron/PF 4mg/2ml inj IV ONE (17:55)
--- NOTE | 2020-07-16 18:19 | NUR ---
To CT with this RN, on monitor, at [phone]. Back to room now, in ER bed 11, report given to Pedro PIERCE
[2020-07-16] MEDS: HYDROcodone/acetaminophen 5mg/325mg tablet PO ONE ×2 (19:16→19:31)
[2020-07-16] MEDS ORDERED: morphine 2 MG/ML inj. syringe IV ONE (19:20)
[2020-07-16] MEDS ORDERED: HYDR-4383 PO (20:41)
[2020-07-16 21:11] VITALS: BP 183/84
== END 2020-07-16 21:13 | disposition home or self-care (01) ==
LOC: ER 17:29
DX: S00.83XA Contusion of other part of head, initial encounter (principal); S80.02XA Contusion of left knee, initial encounter; E78.00 Pure hypercholesterolemia, unspecified; I50.9 Heart failure, unspecified; I11.0 Hypertensive heart disease with heart failure; K21.9 Gastro-esophageal reflux disease without esophagitis; G89.29 Other chronic pain; J44.9 Chronic obstructive pulmonary disease, unspecified; Z98.890 Other specified postprocedural states; Z98.891 History of uterine scar from previous surgery; Z90.710 Acquired absence of both cervix and uterus; Z95.0 Presence of cardiac pacemaker; Z95.2 Presence of prosthetic heart valve; Z88.2 Allergy status to sulfonamides; Z79.899 Other long term (current) drug therapy; Z86.73 Personal history of transient ischemic attack (TIA), and cerebral infarction without residual deficits; W01.0XXA Fall on same level from slipping, tripping and stumbling without subsequent striking against object, initial encounter; Z91.81 History of falling; Y93.89 Activity, other specified; Y92.098 Other place in other non-institutional residence as the place of occurrence of the external cause; Y99.8 Other external cause status
CPT/HCPCS: 70450; 73564; 96374; 96375; 99285; J2270; J2405

== ENCOUNTER 2021-01-13 12:28 | Emergency (ER) | payer BC ==
[~2021-01-13] VITALS: Ht 152.4 cm; Wt 64.5 kg
[~2021-01-13 12:28] MED LIST changes: +CLOP75TA34 PO; -CLOP75TA35 PO; -FERR-106 PO; -LISI-600 PO; +LISI20TA28 PO; +ONDA4TAB12 PO; -PANT-47 PO
[2021-01-13 13:28] LABS: BASOPHILS # (AUTO) 0.1 X10'3 (0-0.2); BASOPHILS % (AUTO) 0.9 % (0-1); EOSINOPHILS # (AUTO) 0.3 X10'3 (0-0.9); EOSINOPHILS % (AUTO) 3.7 % (0-6); HEMATOCRIT 36.7 % (35.0-45.0); HEMOGLOBIN 12.5 g/dl (12.0-16.0); LYMPHOCYTES # (AUTO) 1.3 X10'3 (1.1-4.8); LYMPHOCYTES % (AUTO) 18.6 % (21-51); MEAN CORPUSCULAR HEMOGLOBIN 30.1 PG (27.0-31.0); MEAN CORPUSCULAR VOLUME 88.4 FL (78-98); MEAN PLATELET VOLUME 7.9 FL (7.4-10.4); MONOCYTES # (AUTO) 0.7 X10'3 (0-0.9); MONOCYTES % (AUTO) 10.5 % (2-12); NEUTROPHILS # (AUTO) 4.6 X10'3 (1.8-7.7); NEUTROPHILS % (AUTO) 66.3 % (42-75); PLATELET COUNT 204 X10'3 (140-440); RED BLOOD COUNT 4.15 X10'6 (4.20-5.60); RED CELL DISTRIBUTION WIDTH 13.5 % (11.5-14.5)
[2021-01-13 13:41] LABS: ALANINE AMINOTRANSFERASE 14 U/L (12-78); ALBUMIN 3.4 G/DL (3.4-5.0); ALKALINE PHOSPHATASE 85 IU/L (46-116); ANION GAP 8 (8-16); ASPARTATE AMINO TRANSFERASE 12 U/L (10-37); BILIRUBIN,TOTAL 0.8 MG/DL (0.1-1.0); BLOOD UREA NITROGEN 15 MG/DL (7-18); BUN/CREATININE RATIO 11.6 (6.6-38.0); CALCIUM 9.1 MG/DL (8.5-10.1); CHLORIDE 103 MMOL/L (99-107); CREATININE 1.29 MG/DL (0.40-0.90); GLUCOSE 161 MG/DL (70-104); POTASSIUM 3.4 MMOL/L (3.5-5.1); SODIUM 140 MMOL/L (135-145); TOTAL CARBON DIOXIDE 28.6 MMOL/L (24-32); TOTAL PROTEIN 6.9 G/DL (6.4-8.2); eGFR 39 ML/MIN
[2021-01-13] MEDS ORDERED: ondansetron/PF 4mg/2ml inj IV ONE (14:05)
[2021-01-13] MEDS ORDERED: normal saline 500ml IV soln 500 ML IV ONE (14:05)
[2021-01-13] MEDS ORDERED: potassium Cl 20 mEq SR tablet PO ONE (14:40)
[2021-01-13 15:53] LABS: CLARITY,URINE CLEAR (Clear); COLOR,URINE YELLOW (Yellow); GLUCOSE, URINE NEGATIVE (Neg); KETONES,URINE NEGATIVE (Neg); LEUKOCYTE ESTERASE ,URINE NEGATIVE (Neg); NITRITES, URINE NEGATIVE (Neg); OCCULT BLOOD,URINE TRACE-INTACT (Neg); PROTEIN,URINE NEGATIVE (Neg); UROBILINOGEN,URINE 0.2 E.U/dL (0.2-1.0)
[2021-01-13 15:55] LABS: UA COLLECTION TYPE STRAIGHT CATH
--- NOTE | 2021-01-13 15:55 | NUR ---
PT ASHWINI 150ML OF H2O AND A JODI
[2021-01-13 16:33] LABS: SQUAMOUS EPITHELIAL CELL,UR FEW /LPF (FEW)
[2021-01-13 16:34] LABS: BACTERIA,URINE 1+ /HPF (Neg); RBC,URINE 0-2 /HPF (0-2); WBC,URINE 0-4 /HPF (0-4)
[2021-01-13 16:41] VITALS: BP 150/55
== END 2021-01-13 16:59 | disposition home or self-care (01) ==
LOC: ER 12:29
DX: R11.2 Nausea with vomiting, unspecified (principal); R06.02 Shortness of breath; R07.89 Other chest pain; E86.0 Dehydration; E87.6 Hypokalemia; I25.10 Atherosclerotic heart disease of native coronary artery without angina pectoris; I50.9 Heart failure, unspecified; I11.0 Hypertensive heart disease with heart failure; J44.9 Chronic obstructive pulmonary disease, unspecified; E78.00 Pure hypercholesterolemia, unspecified; K21.9 Gastro-esophageal reflux disease without esophagitis; G89.29 Other chronic pain; N19 Unspecified kidney failure; Z86.73 Personal history of transient ischemic attack (TIA), and cerebral infarction without residual deficits; Z87.01 Personal history of pneumonia (recurrent); Z90.710 Acquired absence of both cervix and uterus; Z95.5 Presence of coronary angioplasty implant and graft; Z79.899 Other long term (current) drug therapy; Z98.891 History of uterine scar from previous surgery; Z72.89 Other problems related to lifestyle; Z88.2 Allergy status to sulfonamides
CPT/HCPCS: 36415; 70450; 71045; 80053; 81001; 83880; 84484; 85025; 93005; 96374; 99285; J2405; J7040; 96361